=== PATIENT | male | born 1930 | race Caucasian/White ===

== ENCOUNTER 2017-03-23 18:57 | Inpatient (IN) ==
[2017-03-23] MEDS ORDERED: *HR* HYDROcodone/Acet 5/325 mg TABLET PO ONE (19:09)
[2017-03-23] MEDS ORDERED: 0.9 % Sodium Chloride 1,000 ML IVC ONE ×2 (19:29→23:00)
[2017-03-23] MEDS ORDERED: methylPREDNISolone 125 MG/2 ML VIAL IVP ONE (19:33)
[2017-03-23] MEDS ORDERED: Piperacillin/Tazobactam 4.5 GM in D5% in Water (Mini-Bag+) 100 ML IVPB ONE (19:33)
[2017-03-23] MEDS ORDERED: Vancomycin 1,000 MG in D5% in Water 250 ML IVPB ONE (19:33)
[2017-03-23] MEDS ORDERED: Ipratropium/Albuterol Neb 3 ML IH ONE (19:33)
[2017-03-23 19:51] LABS: Basophils % 0.2 %; Eosinophils # 0.1 K/mcL (0.0-0.6); Eosinophils % 0.5 %; Hematocrit 48.1 % (37.5-50.1); Hemoglobin 15.7 g/dL (12.9-16.9); Immature Granulocytes % 0.7 % (0-4); Lymphocytes # 1.1 K/mcL (0.6-4.6); Lymphocytes % 6.5 %; Mean Corpuscular HGB Conc 32.6 g/dL (31.6-35.5); Mean Corpuscular Hemoglobin 32.5 pg (28.0-33.3); Mean Corpuscular Volume 99.6 fL (83.0-100.0); Mean Platelet Volume 9.9 fL (9.4-12.4); Monocytes # 0.6 K/mcL (0.0-1.3); Monocytes % 3.5 %; Neutrophils # 15.6 K/mcL (1.6-8.9); Platelet Count 179 K/mcL (140-400); Red Blood Count 4.83 M/mcL (4.19-5.50); Red Cell Distribution Width 14.9 % (11.5-14.5); Segmented Neutrophils % 88.6 %
[2017-03-23 19:53] LABS: VBG HCO3 38.7 mEq/L (21-27); VBG PH 7.44 pH Units (7.32-7.42)
[2017-03-23 20:00] LABS: INR 0.9; Prothrombin Time 9.7 Seconds (9.4-12.1)
[2017-03-23 20:02] LABS: Activated Partial Thrombo Time 30.8 Seconds (26.0-36.0)
[2017-03-23 20:07] LABS: Calcium 9.4 mg/dL (8.6-10.8)
[2017-03-23] MEDS ORDERED: 0.9 % Sodium Chloride 1,000 ML IVC SCH ×2 (20:15→23:05)
[2017-03-23] MEDS ORDERED: Acetaminophen 325 MG TABLET PO PRN (21:57)
[2017-03-23] MEDS ORDERED: Naloxone 0.4 MG/ML INJ IVP PRN (21:57)
--- NOTE | 2017-03-23 22:45 | Internal Med History&Physical ---
Date of Encounter: 03/23/17 Time of Encounter: 22:00 Assessment and Plan (1) Compression fracture of body of thoracic vertebra Current visit: Yes Status: Acute Patient presents with sudden onset low back pain that started 8 hours prior to presentation. Exam reveals point tenderness in the lower midline back. CT scan of the abdomen reveals new onset compression fracture of the T11 vertebra. Patient be admitted to inpatient status due to new onset diagnosis of compression fracture and also sepsis due to pneumonia. Expected to be in the hospital for at least 2 midnights. Expected discharge disposition is back to the nursing facility. High risk due to risk of septic shock and further falls. Orthopedic consult will be requested in the morning. Physical therapy and outpatient therapy consults. Pain control. (2) Pneumonia Current visit: Yes Status: Acute Patient has crepitations bilateral lung bases. He does not have any symptoms of shortness of breath, cough, sputum production or fever or chills. He has a white count of 17,000 and elevated lactic acid level. CT scan evidence of bilateral lower lobe pneumonia. Suspected aspiration pneumonia due to the location of pneumonia and bilateral lower lobes posteriorly. Patient will be admitted to inpatient status. High risk due to risk of sepsis and septic shock. Patient received vancomycin and Zosyn in the emergency room. He will be placed on intravenous Unasyn. Speech therapy consult will be requested to evaluate for swallowing problems. Qualifiers: Pneumonia type: aspiration pneumonia Aspiration pneumonia type: due to gastric secretions Laterality: bilateral Lung location: lower lobe of lung Qualified Code(s): J69.0 - Pneumonitis due to inhalation of food and vomit (3) Diabetes mellitus Current visit: Yes Status: Chronic Continue home medications. Sliding scale insulin. His renal function appears to be at baseline. We will avoid nephrotoxic agents and hypotension. Intravenous fluids. 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 Continue oxygen supplementation. Qualifiers: Chronicity: chronic Respiratory failure complication: hypoxia Qualified Code(s): J96.11 - Chronic respiratory failure with hypoxia (5) Atrial fibrillation Current visit: Yes Status: Chronic Patient's heart rate is well controlled although he is in atrial fibrillation. Continue home medications for rate control. He does not appear to be on any anticoagulation. This may be related to high risk of falls. Qualifiers: Atrial fibrillation type: permanent Qualified Code(s): I48.2 - Chronic atrial fibrillation (6) COPD (chronic obstructive pulmonary disease) Current visit: Yes Status: Chronic Stable. Breathing treatments [id number]. Patient will be on Levaquin for his pneumonia. Will hold intravenous steroids due to his acute infection and risk of sepsis. Qualifiers: COPD type: unspecified COPD Qualified Code(s): J44.9 - Chronic obstructive pulmonary disease, unspecified (7) Alzheimer's dementia Current visit: No Status: Chronic Stable. Continue home medications. Qualifiers: Alzheimer's disease onset: unspecified onset Dementia behavioral disturbance: without behavioral disturbance Qualified Code(s): G30.9 - Alzheimer's disease, unspecified; F02.80 - Dementia in other diseases classified elsewhere without behavioral disturbance (8) Morbid obesity with BMI of 40.0-44.9, adult Current visit: No Status: Chronic Internal Medicine - H&P: HPI Chief complaint: Lower back pain Admitted From: Emergency Dept Plans for Post Hospital Care: Transfer [facility] History of present illness: Mr. Pineda is a 87 year old male who is a resident of a long-term facility who was sent to emergency department due to lower back pain. The patient is also them as dementia and is a poor historian. However, he is able to answer questions partially. Information was also obtained from review of records and discussion with ER physician. Patient complains of 9/10 pain in the lower back in the midline without any radiation that is throbbing and dull in nature. The pain is aggravated with movement and relieved with rest. He states that the pain started about 8 hours prior to presentation to the emergency department. He denies any history of trauma or injury. He denies any shortness of breath, chest pain, abdominal pain, nausea, vomiting , diarrhea or constipation. He denies fever or chills, cough, wheezing or sputum production. Denies any recent weight changes or the changes in his appetite. Past Med Surg Social Fam HX - Past Medical History Attestation: Yes The following information was validated with the patient. Source: old records reviewed Medical history: atrial fibrillation, CHF, COPD, dementia (Alzheimer's dementia) , diabetes, hypertension, renal disease (Chronic kidney disease) Psychiatric history: no psych history - Past Surgical History Surgical History: non-contributory - Social History Smoking Status: Never smoker Smokeless Tobacco Status: No Alcohol use: none Drug use: none Current living situation: ECF - Additional Family History Additional family history: Reviewed; not pertinent Internal Medicine - H&P: Meds Acetaminophen [Tylenol] 650 mg PO BID 03/23/17 [History] Acetaminophen [Tylenol] 650 mg PO Q6HR PRN 03/23/17 [History] Allopurinol [Zyloprim 100 MG] 200 mg PO DAILY 03/23/17 [History] Aspirin 81 mg PO DAILY 03/23/17 [History] Bisacodyl [Dulcolax] 10 mg RC DAILY PRN 03/23/17 [History] Cholecalciferol (D-3) [Vitamin D] 5,000 unit PO DAILY 03/23/17 [History] Finasteride [Proscar] 5 mg PO DAILY 03/23/17 [History] Fluticasone/Salmeterol [Advair 250-50 Diskus] 2 puff IH BID 03/23/17 [History] Insulin DETEMIR [Levemir] 10 unit SQ DAILY 03/23/17 [History] Ipratropium/Albuterol Neb [Duoneb] 3 ml IH Q6HR 03/23/17 [History] Lactulose [Enulose] 30 ml PO BID 03/23/17 [History] Lisinopril 2.5 mg PO DAILY 03/23/17 [History] Magnesium Hydroxide [Milk of Magnesia] 30 ml PO DAILY PRN 03/23/17 [History] Magnesium Oxide [Magnesium] 500 mg PO DAILY 03/23/17 [History] Metoprolol Succinate 100 mg PO DAILY 03/23/17 [History] Polyethylene Glycol 3350 [Purelax] 17 gm PO DAILY 03/23/17 [History] Potassium Chloride [K-Tab ER] 40 meq PO TID 03/23/17 [History] Sennosides [Senna] 8.6 mg PO BID 03/23/17 [History] Tamsulosin [Flomax] 0.8 mg PO DAILY 03/23/17 [History] Tiotropium [Spiriva] 1 cap IH DAILY 03/23/17 [History] Torsemide 100 mg PO DAILY 03/23/17 [History] metOLazone [Zaroxolyn] 2.5 mg PO MOWEFR 03/23/17 [History] Allergies No Known Allergies Allergy (Verified 05/22/16 16:12) All Systems PM: A 10-system review of systems was performed and is negative for pertinent findings except as documented above in the HPI. Review of systems: 10 systems have been reviewed and are negative except as mentioned in the history of present illness - Constitutional Vitals: Temp Pulse Resp BP Pulse Ox 98.7 F 72 20 98/47 94 03/23/17 18:59 03/23/17 21:16 03/23/17 21:59 03/23/17 21:59 03/23/17 21:16 Exam: Gen.: Lying in bed. Mild to moderate distress. Eyes: Pupils equal, round and reactive to light. Extraocular muscles intact. ENT: Dry mucous membranes. No oropharyngeal erythema or discharge. Chest: Bilateral basal conditions present. Not using axillary muscles of respiration. CVS: First and second heart sounds present. No murmurs, rubs or gallops. Abdomen: Soft, nontender, obese. Bowel sounds present. No hepatosplenomegaly. Skin: No decubitus ulcers appreciated. Tenderness to palpation over the lower midline back. CONCR[employer]E PAVER: No focal neuro deficits present. Psychiatric: Alert, awake and not oriented to time, place or person. Lymphatic system: No lymphadenopathy appreciated Internal Med - H&P Results - Labs CBC & Chem 7: 03/23/17 19:43 03/23/17 19:43 - EKG Data -: EKG Interpreted by Myself (Atrial fibrillation) EKG shows normal: ST-T waves (T-wave inversions in inferior and lateral leads) Rate: normal - EKG Data Prior EKG available for review: yes When compared to previous EKG: there is no significant change - Diagnostic Studies CT scan - chest Status: image reviewed by me (Right lower lobe infiltrate consistent with pneumonia; opacification also noted in left lower lobe concerning for pneumonia) CT scan - abdomen Additional comments: According to radiology read, new compression fracture of the T11 thoracic vertebra
[2017-03-24] MEDS: Ampicillin/Sulbactam 3,000 MG in 0.9 % Sodium Chloride Mini Bag 100 ML IVPB SCH ×4 (00:16→16:40)
[2017-03-24] MEDS: *HR* Heparin 5,000 UNIT/ML VIAL SQ SCH ×3 (00:16→16:43)
[2017-03-24] MEDS ORDERED: Dextrose Gel 15 GM PO PRN ×2 (01:08)
[2017-03-24] MEDS ORDERED: D5% in Water 1,000 ML IVC PRN (01:08)
[2017-03-24] MEDS ORDERED: *HR* Dextrose 50 % in Water (Syg) 50 ML SYRINGE IVP PRN (01:08)
--- NOTE | 2017-03-24 01:13 | Emergency Department Note ---
Disposition Clinical Impression: Septic shock Disposition: Admitted As Inpatient Condition: Critical General Adult HPI - General Chief complaint: ED Back Pain/Injury Stated complaint: Flank/Back Pain Time Seen by Provider: 03/23/17 18:59 Source: patient Limitations: no limitations Nursing Notes Reviewed: Yes Vital Signs Reviewed: Yes - History of Present Illness HPI Narrative: 87-year-old male who presents with concern for back pain, abdominal pain. He has dementia at baseline. He is sent in from a local senior living. He admits that his abdominal pain started shortly after dinner this evening. He is normally bed confined. He has urinary incontinence at baseline. He denies recent trauma, fall but does admit to recent cough. He has some wheezing on arrival. Tylenol was given prior to arrival. Pain Scale: 0 - Related Data Home Medications Medication Instructions Recorded Confirmed Acetaminophen [Tylenol] 650 mg PO BID 03/23/17 03/23/17 Acetaminophen [Tylenol] 650 mg PO Q6HR PRN 03/23/17 03/23/17 Allopurinol [Zyloprim 100 MG] 200 mg PO DAILY 03/23/17 03/23/17 Aspirin 81 mg PO DAILY 03/23/17 03/23/17 Bisacodyl [Dulcolax] 10 mg RC DAILY PRN 03/23/17 03/23/17 Cholecalciferol (D-3) [Vitamin D] 5,000 unit PO DAILY 03/23/17 03/23/17 Finasteride [Proscar] 5 mg PO DAILY 03/23/17 03/23/17 Fluticasone/Salmeterol [Advair 2 puff IH BID 03/23/17 03/23/17 250-50 Diskus] Insulin DETEMIR [Levemir] 10 unit SQ DAILY 03/23/17 03/23/17 Ipratropium/Albuterol Neb [Duoneb] 3 ml IH Q6HR 03/23/17 03/23/17 Lactulose [Enulose] 30 ml PO BID 03/23/17 03/23/17 Lisinopril 2.5 mg PO DAILY 03/23/17 03/23/17 Magnesium Hydroxide [Milk of 30 ml PO DAILY PRN 03/23/17 03/23/17 Magnesia] Magnesium Oxide [Magnesium] 500 mg PO DAILY 03/23/17 03/23/17 Metoprolol Succinate 100 mg PO DAILY 03/23/17 03/23/17 Polyethylene Glycol 3350 [Purelax] 17 gm PO DAILY 03/23/17 03/23/17 Potassium Chloride [K-Tab ER] 40 meq PO TID 03/23/17 03/23/17 Sennosides [Senna] 8.6 mg PO BID 03/23/17 03/23/17 Tamsulosin [Flomax] 0.8 mg PO DAILY 03/23/17 03/23/17 Tiotropium [Spiriva] 1 cap IH DAILY 03/23/17 03/23/17 Torsemide 100 mg PO DAILY 03/23/17 03/23/17 metOLazone [Zaroxolyn] 2.5 mg PO MOWEFR 03/23/17 03/23/17 Allergies Allergy/AdvReac Type Severity Reaction Status Date / Time No Known Allergies Allergy Verified 05/22/16 16:12 All systems ED: reviewed and negative except as stated. Past Medical History - Past Medical History Medical history: Reports: atrial fibrillation, CHF, COPD, dementia, diabetes, hypertension, renal disease Surgical history: Reports: non-contributory Psychiatric history: Reports: no psych history - Social History Smoking Status: Never smoker Smokeless Tobacco Status: No Alcohol use: Reports: none Drug use: Reports: none Physical Exam Confused at baseline Pupils equal, round, reactive to light Regular rate and rhythm Wheezing bilaterally, tachypnea Abdomen is soft and nontender Extremities are well perfused No focal neurological deficit Skin is pink, warm, dry - General Limitations: no limitations General appearance: alert, in no apparent distress Course Vital Signs Temperature 98.7 F 03/23/17 18:59 Pulse Rate 83 03/23/17 18:59 Respiratory Rate 03/23/17 18:59 Blood Pressure 119/93 03/23/17 18:59 O2 Sat by Pulse Oximetry 94 03/23/17 18:59 Temperature 98.2 F 03/23/17 23:30 Pulse Rate 67 03/23/17 23:30 Respiratory Rate 20 03/23/17 23:30 Blood Pressure 100/63 03/23/17 23:30 O2 Sat by Pulse Oximetry 94 03/23/17 23:30 Oxygen Delivery Oxygen Delivery Nasal Cannula Medical Decision Making - [facility] Narrative Medical decision making narrative: Male patient with wheezing on arrival and concern for pneumonia. His blood pressure was fairly soft on arrival. He was suspicious for having underlying infection. Given his residence in a nursing facility and would proceed with treatment for age. On further evaluation he was found to have sepsis. His lactate was persistently elevated despite IV fluids. I did not administer 30 mL per kilogram fluid bolus as this would require up to 5 L of fluid administration and I believe that this would result in significant volume overload for the patient. His blood pressure did improve with 2 L of normal saline. Broad-spectrum antibiotics were administered. Cultures were obtained. CT scan shows pneumonia as well as possible cystitis. We did attempt to place a Flowers catheter however this is unsuccessful due to body habitus. 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 He is a DNR CC. The patient will be admitted with a diagnosis of septic shock to the hospitalist team. I discussed the case with the hospitalist team. - Medical Records Medical records reviewed: Yes I reviewed the patient's medical records. - Lab Data Lab results reviewed: Yes I reviewed the patient's lab results. Result diagrams: 03/23/17 19:43 03/23/17 19:43 Lab Results 03/23/17 03/23/17 03/23/17 Range/Units 19:43 19:43 19:43 WBC 17.6 H (4.3-11.1) K/mcL RBC 4.83 (4.19-5.50) M/mcL Hgb 15.7 (12.9-16.9) g/dL Hct 48.1 (37.5-50.1) % MCV 99.6 (83.0-100.0) fL MCH 32.5 (28.0-33.3) pg MCHC 32.6 (31.6-35.5) g/dL RDW 14.9 H (11.5-14.5) % Plt Count 179 (140-400) K/mcL MPV 9.9 (9.4-12.4) fL Immature Gran % 0.7 (0-4) % Seg Neutrophils % 88.6 % Lymphocytes % 6.5 % Monocytes % 3.5 % Eosinophils % 0.5 % Basophils % 0.2 % Neutrophils # 15.6 H (1.6-8.9) K/mcL Lymphocytes # 1.1 (0.6-4.6) K/mcL Monocytes # 0.6 (0.0-1.3) K/mcL Eosinophils # 0.1 (0.0-0.6) K/mcL Basophils # 0.0 (0.0-0.2) K/mcL PT (9.4-12.1) Seconds INR APTT (26.0-36.0) Seconds VBG pH (7.32-7.42) pH Units VBG pCO2 (41-51) mmHg VBG pO2 (25-40) mmHg VBG HCO3 (21-27) mEq/L Sodium 140 (136-145) mEq/L Potassium 4.0 (3.5-4.5) mEq/L Chloride 96 L (98-109) mEq/L Carbon Dioxide 31 H (19-29) mEq/L BUN 37 H (8-26) mg/dL Creatinine 1.69 H (0.72-1.25) mg/dL Est GFR ( Amer) 47 L (> 60) Est GFR (Non-Af Amer) 39 L (> 60) BUN/Creatinine Ratio 22 (6-26) Glucose 133 H (70-99) mg/dL Calculated Osmolality 301 H (280-300) Lactic Acid (0.5-2.2) mmol/L Calcium 9.4 (8.6-10.8) mg/dL Troponin I 0.02 (0-0.03) ng/mL Lipase 18 (8-78) Units/L 03/23/17 03/23/17 03/23/17 Range/Units 19:43 19:43 19:43 WBC (4.3-11.1) K/mcL RBC (4.19-5.50) M/mcL Hgb (12.9-16.9) g/dL Hct (37.5-50.1) % MCV (83.0-100.0) fL MCH (28.0-33.3) pg MCHC (31.6-35.5) g/dL RDW (11.5-14.5) % Plt Count (140-400) K/mcL MPV (9.4-12.4) fL Immature Gran % (0-4) % Seg Neutrophils % % Lymphocytes % % Monocytes % % Eosinophils % % Basophils % % Neutrophils # (1.6-8.9) K/mcL Lymphocytes # (0.6-4.6) K/mcL Monocytes # (0.0-1.3) K/mcL Eosinophils # (0.0-0.6) K/mcL Basophils # (0.0-0.2) K/mcL PT 9.7 (9.4-12.1) Seconds INR 0.9 APTT 30.8 (26.0-36.0) Seconds VBG pH 7.44 H (7.32-7.42) pH Units VBG pCO2 57 H (41-51) mmHg VBG pO2 27 (25-40) mmHg VBG HCO3 38.7 H (21-27) mEq/L Sodium (136-145) mEq/L Potassium (3.5-4.5) mEq/L Chloride (98-109) mEq/L Carbon Dioxide (19-29) mEq/L BUN (8-26) mg/dL Creatinine (0.72-1.25) mg/dL Est GFR ( Amer) (> 60) Est GFR (Non-Af Amer) (> 60) BUN/Creatinine Ratio (6-26) Glucose (70-99) mg/dL Calculated Osmolality (280-300) Lactic Acid 2.4 H (0.5-2.2) mmol/L Calcium (8.6-10.8) mg/dL Troponin I (0-0.03) ng/mL Lipase (8-78) Units/L 03/23/ Range/Units 21:12 WBC (4.3-11.1) K/mcL RBC (4.19-5.50) M/mcL Hgb (12.9-16.9) g/dL Hct (37.5-50.1) % MCV (83.0-100.0) fL MCH (28.0-33.3) pg MCHC (31.6-35.5) g/dL RDW (11.5-14.5) % Plt Count (140-400) K/mcL MPV (9.4-12.4) fL Immature Gran % (0-4) % Seg Neutrophils % % Lymphocytes % % Monocytes % % Eosinophils % % Basophils % % Neutrophils # (1.6-8.9) K/mcL Lymphocytes # (0.6-4.6) K/mcL Monocytes # (0.0-1.3) K/mcL Eosinophils # (0.0-0.6) K/mcL Basophils # (0.0-0.2) K/mcL PT (9.4-12.1) Seconds INR APTT (26.0-36.0) Seconds VBG pH (7.32-7.42) pH Units VBG pCO2 (41-51) mmHg VBG pO2 (25-40) mmHg VBG HCO3 (21-27) mEq/L Sodium (136-145) mEq/L Potassium (3.5-4.5) mEq/L Chloride (98-109) mEq/L Carbon Dioxide (19-29) mEq/L BUN (8-26) mg/dL Creatinine (0.72-1.25) mg/dL Est GFR ( Amer) (> 60) Est GFR (Non-Af Amer) (> 60) BUN/Creatinine Ratio (6-26) Glucose (70-99) mg/dL Calculated Osmolality (280-300) Lactic Acid 2.5 H (0.5-2.2) mmol/L Calcium (8.6-10.8) mg/dL Troponin I (0-0.03) ng/mL Lipase (8-78) Units/L Critical Care Time Critical Care Time: Yes Total Critical Care Time: 31 Attestation: Greater than 31 minutes of critical care time was spent providing acute resuscitative care to this critical patient suffering from septic shock. Critical care time was excluding billable procedures.
[2017-03-24 02:00] LABS: Basophils % 0.2 %; Hematocrit 44.1 % (37.5-50.1); Hemoglobin 14.6 g/dL (12.9-16.9); Immature Granulocytes % 1.2 % (0-4); Lymphocytes # 1.2 K/mcL (0.6-4.6); Lymphocytes % 4.8 %; Mean Corpuscular HGB Conc 33.1 g/dL (31.6-35.5); Mean Corpuscular Volume 99.5 fL (83.0-100.0); Mean Platelet Volume 10.5 fL (9.4-12.4); Monocytes # 0.6 K/mcL (0.0-1.3); Monocytes % 2.5 %; Neutrophils # 21.9 K/mcL (1.6-8.9); Platelet Count 161 K/mcL (140-400); Red Blood Count 4.43 M/mcL (4.19-5.50); Red Cell Distribution Width 14.7 % (11.5-14.5); Segmented Neutrophils % 91.3 %
[2017-03-24 02:19] LABS: Bilirubin,Total 2.3 mg/dL (0.2-1.2); Calcium 8.6 mg/dL (8.6-10.8); Globulin 2.9 g/dL (2.4-3.5); Potassium 3.8 mEq/L (3.5-4.5); Total Protein 5.9 g/dL (6.0-8.3)
[2017-03-24 02:35] LABS: Basophils # 0.1 K/mcL (0.0-0.2)
[2017-03-24 03:03] LABS: Platelet Estimate Normal (Normal)
[2017-03-24] MEDS: Ipratropium/Albuterol Neb 3 ML IH SCH ×5 (03:41→22:32)
[2017-03-24] MEDS ORDERED: 0.9 % Sodium Chloride 500 ML IVC ONE (04:04)
[2017-03-24] MEDS ORDERED: 0.9 % Sodium Chloride 1,000 ML IVC ONE (05:20)
--- NOTE | 2017-03-24 07:56 | Urology - Consult Note ---
Date of Encounter: 03/24/17 Time of Encounter: 07:53 - Assessment and Plan (1) BPH (benign prostatic hypertrophy) with urinary retention Current Visit: Yes Status: Acute Assessment and plan: 87-year-old man with a history of BPH and urinary retention. There is a need for close urine output measurement. He has a pneumonia. I was able to place a 16 Chinese coude tipped catheter. He tolerated the procedure well. The primary team can remove the catheter when it is no longer needed. Urology CN:HPI Consult date: 03/24/17 Reason for consult Urology: Difficult Flowers Requesting physician: Aden Dickson History of present illness: 87-year-old man was admitted for pneumonia and sepsis. There is a need for close urine output monitoring. Attempts were made at placing a catheter which failed. I was counseled to place a Flowers catheter. Mr. Pineda says he usually voids well. He denies any difficulty with urination. He denies any dysuria. Past Med Surg Social Fam HX - Past Medical History Medical history: atrial fibrillation, CHF, COPD, dementia, diabetes, hypertension, renal disease Psychiatric history: no psych history - Past Surgical History Surgical History: non-contributory - Social History Smoking Status: Never smoker Smokeless Tobacco Status: No Alcohol use: none Drug use: none - Family History Mother History Unknown: Yes Father History Unknown: Yes Medications and Allergies Acetaminophen [Tylenol] 650 mg PO BID 03/23/17 [History] Acetaminophen [Tylenol] 650 mg PO Q6HR PRN 03/23/17 [History] Allopurinol [Zyloprim 100 MG] 200 mg PO DAILY 03/23/17 [History] Aspirin 81 mg PO DAILY 03/23/17 [History] Bisacodyl [Dulcolax] 10 mg RC DAILY PRN 03/23/17 [History] Cholecalciferol (D-3) [Vitamin D] 5,000 unit PO DAILY 03/23/17 [History] Finasteride [Proscar] 5 mg PO DAILY 03/23/17 [History] Fluticasone/Salmeterol [Advair 250-50 Diskus] 2 puff IH BID 03/23/17 [History] Insulin DETEMIR [Levemir] 10 unit SQ DAILY 03/23/17 [History] Ipratropium/Albuterol Neb [Duoneb] 3 ml IH Q6HR 03/23/17 [History] Lactulose [Enulose] 30 ml PO BID 03/23/17 [History] Lisinopril 2.5 mg PO DAILY 03/23/17 [History] Magnesium Hydroxide [Milk of Magnesia] 30 ml PO DAILY PRN 03/23/17 [History] Magnesium Oxide [Magnesium] 500 mg PO DAILY 03/23/17 [History] Metoprolol Succinate 100 mg PO DAILY 03/23/17 [History] Polyethylene Glycol 3350 [Purelax] 17 gm PO DAILY 03/23/17 [History] Potassium Chloride [K-Tab ER] 40 meq PO TID 03/23/17 [History] Sennosides [Senna] 8.6 mg PO BID 03/23/17 [History] Tamsulosin [Flomax] 0.8 mg PO DAILY 03/23/17 [History] Tiotropium [Spiriva] 1 cap IH DAILY 03/23/17 [History] Torsemide 100 mg PO DAILY 03/23/17 [History] metOLazone [Zaroxolyn] 2.5 mg PO MOWEFR 03/23/17 [History] Allergies No Known Allergies Allergy (Verified 05/22/16 16:12) Review of Systems - Constitutional no chills, no fever(s) - EENT Nose, mouth and throat: no dizziness - Cardiovascular no chest pain - Respiratory no dyspnea - Gastrointestinal no nausea, no vomiting - Genitourinary no flank pain, no hematuria - Musculoskeletal no back pain - Integumentary no erythema, no rash - Neurological no weakness - Psychiatric no suicidal ideation - Hematologic/Lymphatic no easy bleeding - Allergic/Immunologic no wheezing Exam Initial Vital Signs Temp Pulse Resp BP Pulse Ox 98.7 F 83 20 119/93 94 03/23/17 18:59 03/23/17 18:59 03/23/17 18:59 03/23/17 18:59 03/23/17 18:59 - General physical appearance Present: well developed, well nourished, no distress - Eyes Absent: icteric - ENT Present: normal nares - Neck Present: trachea midline - Respiratory Present: normal respiratory effort - Cardiovascular Cardiovascular exam IM: RRR - Abdomen Abdomen: Present: soft Urology Results - Labs 03/24/17 01:51 03/24/17 01:51 Abnormal lab results WBC 24.0 K/mcL (4.3-11.1) H 03/24/17 01:51 RDW 14.7 % (11.5-14.5) H 03/24/17 01:51 Neutrophils # 21.9 K/mcL (1.6-8.9) H 03/24/17 01:51 VBG pH 7.44 pH Units (7.32-7.42) H 03/23/17 19:43 VBG pCO2 57 mmHg (41-51) H 03/23/17 19:43 VBG HCO3 38.7 mEq/L (21-27) H 03/23/17 19:43 Chloride 97 mEq/L (98-109) L 03/24/17 01:51 BUN 38 mg/dL (8-26) H 03/24/17 01:51 Creatinine 1.81 mg/dL (0.72-1.25) H 03/24/17 01:51 Est GFR ( Amer) 43 (> 60) L 03/24/17 01:51 Est GFR (Non-Af Amer) 36 (> 60) L 03/24/17 01:51 Glucose 187 mg/dL (70-99) H 03/24/17 01:51 Lactic Acid 2.8 mmol/L (0.5-2.2) H 03/24/17 01:51 Total Bilirubin 2.3 mg/dL (0.2-1.2) H 03/24/17 01:51 Serum Total Protein 5.9 g/dL (6.0-8.3) L 03/24/17 01:51 Albumin 3.0 g/dL (3.5-5.0) L 03/24/17 01:51 Albumin/Globulin Ratio 1.0 (1.1-2.2) L 03/24/17 01:51 Diabetes panel 03/24/17 Range/Units 01:51 Sodium 137 (136-145) mEq/L Potassium 3.8 (3.5-4.5) mEq/L Chloride 97 L (98-109) mEq/L Carbon Dioxide 29 (19-29) mEq/L BUN 38 H (8-26) mg/dL Creatinine 1.81 H (0.72-1.25) mg/dL Glucose 187 H (70-99) mg/dL Calcium 8.6 (8.6-10.8) mg/dL AST 18 (5-34) Units/L ALT 7 (0-55) Units/L Alkaline Phosphatase 60 (38-126) Units/L Albumin 3.0 L (3.5-5.0) g/dL Calcium panel 03/24/17 Range/Units 01:51 Calcium 8.6 (8.6-10.8) mg/dL Albumin 3.0 L (3.5-5.0) g/dL Pituitary panel 03/24/17 Range/Units 01:51 Sodium 137 (136-145) mEq/L Potassium 3.8 (3.5-4.5) mEq/L Chloride 97 L (98-109) mEq/L Carbon Dioxide 29 (19-29) mEq/L BUN 38 H (8-26) mg/dL Creatinine 1.81 H (0.72-1.25) mg/dL Glucose 187 H (70-99) mg/dL Calcium 8.6 (8.6-10.8) mg/dL Adrenal panel 03/24/17 Range/Units 01:51 Sodium 137 (136-145) mEq/L Potassium 3.8 (3.5-4.5) mEq/L Chloride 97 L (98-109) mEq/L Carbon Dioxide 29 (19-29) mEq/L BUN 38 H (8-26) mg/dL Creatinine 1.81 H (0.72-1.25) mg/dL Glucose 187 H (70-99) mg/dL Calcium 8.6 (8.6-10.8) mg/dL Total Bilirubin 2.3 H (0.2-1.2) mg/dL AST 18 (5-34) Units/L ALT 7 (0-55) Units/L Alkaline Phosphatase 60 (38-126) Units/L Albumin 3.0 L (3.5-5.0) g/dL All other labs normal. Procedures:Urology - Catheter Insertion (Urinary) Bladder Scan/Ultrasound used before catheterization: No Preparation: Povidone-Iodine Type of catheter inserted: 2 way Catheter Chinese Size: 16 (Coude) Topical anesthesia used: Yes Results: successfully catheterized-immediate flow Urine Appearance: Clear Patient tolerated procedure: well Complications: none Consult Discharge Plan - Plan Referrals: Emiliano Linda [Primary Care Provider] -
[2017-03-24] MEDS: Lactulose Oral Soln 20 GM/30 ML UDC PO SCH ×2 (08:22→21:24)
[2017-03-24] MEDS: Aspirin 81 MG TAB.CHEW PO SCH (08:23)
[2017-03-24] MEDS: Cholecalciferol (D-3) 1,000 UNIT TABLET PO SCH (08:23)
[2017-03-24] MEDS: Finasteride 5 MG TABLET PO SCH (08:24)
[2017-03-24] MEDS: Sennosides 8.6 MG TABLET PO SCH ×2 (08:26→21:24)
[2017-03-24] MEDS ORDERED: Metoprolol XL (24 HR) Succ 50 MG TAB.ER.24H PO SCH (09:00)
[2017-03-24] MEDS ORDERED: levoFLOXacin 750 MG TABLET PO SCH (09:00)
[2017-03-24] MEDS ORDERED: NON-FORMULARY MEDICATION 1 EACH EACH (Insulin Detemir 10 UNIT) SQ SCH (09:00)
[2017-03-24] MEDS: Insulin LISPRO 300 UNITS/3 ML VIAL SQ SCH ×4 (10:26→21:18)
[2017-03-24] MEDS: Insulin DETEMIR 100 UNIT/ML X5UNITS SQ SCH (10:26)
[2017-03-24] MEDS: Budesonide/Formoterol 80/4.5 MDI IH SCH ×2 (10:46→22:32)
--- NOTE | 2017-03-24 12:13 | Palliative - Consult Note ---
Date of Encounter: 03/24/17 Time of Encounter: 11:30 - Assessment and Plan (1) Pain Current Visit: Yes Status: Acute Assessment and plan: Patient reports having pain to middle of his back. Patient with T11 compression fracture. Equal push and pull to all extremities and denies numbness or tingling. Rates pain a 5/10 and states that it is a constant ache. Will add PRN Vicodin as son states that he has had this on the past and tolerated fine. (2) Compression fracture of body of thoracic vertebra Current Visit: Yes Status: Acute Assessment and plan: Orthopedic consult pending (3) Goals of care, counseling/discussion Current Visit: Yes Status: Acute Assessment and plan: Patient is documented DNRCC-Comfort care his son Marquis is POA (#[phone]). I spoke with Marquis at bedside and he desires that his father receive care as needed for episodic events. The patient is not a hospice patient and Marquis understands the patients code status. He is also aware that the patient is has morbid obesity and that this places him at limited ability to have aggressive interventions. He desires that the patient be comfortable and treated as needed. Patient remains DNRCC-Comfort Care and desires antibiotics and fluids as needed. (4) Pneumonia Current Visit: Yes Status: Acute Qualifiers: Pneumonia type: aspiration pneumonia Aspiration pneumonia type: due to gastric secretions Laterality: bilateral Lung location: lower lobe of lung Qualified Code(s): J69.0 - Pneumonitis due to inhalation of food and vomit (5) COPD (chronic obstructive pulmonary disease) Current Visit: Yes Status: Chronic Qualifiers: COPD type: unspecified COPD Qualified Code(s): J44.9 - Chronic obstructive pulmonary disease, unspecified (6) Alzheimer's dementia Current Visit: No Status: Chronic Qualifiers: Alzheimer's disease onset: unspecified onset Dementia behavioral disturbance: without behavioral disturbance Qualified Code(s): G30.9 - Alzheimer's disease, unspecified; F02.80 - Dementia in other diseases classified elsewhere without behavioral disturbance Palliative-CN HPI - Data of Consult Patient: new to practice Consult date: 03/24/17 Requesting Physician: Leona Carmen MD Primary Care Provider: Emiliano Linda - Consult Narrative Palliative Care/Comfort Measures: Palliative care Reason for consult: Goals of Care History of present illness: Mr. Pineda is a 87 year old male admitted from [facility] with pneumonia and sepsis. The patient was also found to have a compression fracture of T11 vertebra with an Orthopedic consult pending. The patient has a history of dementia of Alzheimers type but is able to answer general healthcare questions. He states that he is bed bound and doesn't ambulate. He is obese. The patient son Marquis serves as POA. The patient is a documented DNRCC - Comfort Care and this palliative care consult os for GOC clarification of desired treatment. CC: Leona Carmen MD Past Med Surg Social Fam HX - Past Medical History Medical history: atrial fibrillation, CHF, COPD, dementia, diabetes, hypertension, renal disease Psychiatric history: no psych history - Past Surgical History Surgical History: non-contributory - Social History Smoking Status: Never smoker Smokeless Tobacco Status: No Alcohol use: none Drug use: none - Family History Mother History Unknown: Yes Father History Unknown: Yes Medications and Allergies Acetaminophen [Tylenol] 650 mg PO BID 03/23/17 [History] Acetaminophen [Tylenol] 650 mg PO Q6HR PRN 03/23/17 [History] Allopurinol [Zyloprim 100 MG] 200 mg PO DAILY 03/23/17 [History] Aspirin 81 mg PO DAILY 03/23/17 [History] Bisacodyl [Dulcolax] 10 mg RC DAILY PRN 03/23/17 [History] Cholecalciferol (D-3) [Vitamin D] 5,000 unit PO DAILY 03/23/17 [History] Finasteride [Proscar] 5 mg PO DAILY 03/23/17 [History] Fluticasone/Salmeterol [Advair 250-50 Diskus] 2 puff IH BID 03/23/17 [History] Insulin DETEMIR [Levemir] 10 unit SQ DAILY 03/23/17 [History] Ipratropium/Albuterol Neb [Duoneb] 3 ml IH Q6HR 03/23/17 [History] Lactulose [Enulose] 30 ml PO BID 03/23/17 [History] Lisinopril 2.5 mg PO DAILY 03/23/17 [History] Magnesium Hydroxide [Milk of Magnesia] 30 ml PO DAILY PRN 03/23/17 [History] Magnesium Oxide [Magnesium] 500 mg PO DAILY 03/23/17 [History] Metoprolol Succinate 100 mg PO DAILY 03/23/17 [History] Polyethylene Glycol 3350 [Purelax] 17 gm PO DAILY 03/23/17 [History] Potassium Chloride [K-Tab ER] 40 meq PO TID 03/23/17 [History] Sennosides [Senna] 8.6 mg PO BID 03/23/17 [History] Tamsulosin [Flomax] 0.8 mg PO DAILY 03/23/17 [History] Tiotropium [Spiriva] 1 cap IH DAILY 03/23/17 [History] Torsemide 100 mg PO DAILY 03/23/17 [History] metOLazone [Zaroxolyn] 2.5 mg PO MOWEFR 03/23/17 [History] Allergies No Known Allergies Allergy (Verified 05/22/16 16:12) All systems: reviewed and no additional remarkable complaints except as stated ( back pain) - Musculoskeletal Musculoskeletal ROS IM: muscle weakness - Neurological Neurological ROS: weakness Palliative Care-Exam - Constitutional Vitals: Temp Pulse Resp BP Pulse Ox 98 F 60 18 93/54 96 03/24/17 11:50 03/24/17 11:50 03/24/17 11:50 03/24/17 11:50 03/24/17 11:50 General appearance: Present: cooperative - Head Head Exam: Present: atraumatic, normal inspection, normocephalic - Eye Eye exam: Present: PERRL - ENT ENT exam: Present: mucous membranes dry - Respiratory Respiratory exam: Present: CTAB - Expanded Respiratory Exam Location: decreased breath sounds: Left, Right, Upper - Cardiovascular Cardiovascular exam: Present: RRR, +S1, +S2 - Expanded Cardiovascular Exam Peripheral pulses: 1+: Femoral (L) PM, Femoral (R) PM, Posterior Tibialis (L), Posterior Tibialis (R), 2+: Carotid (L) PM, Carotid (R) PM, Radial (L), Radial ( R), Dorsalis Pedis (L) PM, Dorsalis Pedis (R) PM - GI/Abdominal Exam GI/Abdominal exam: Present: normal bowel sounds - Catheter Type: Urethral (Flowers) (dark yellow urine) - Expanded Lower Extremities Exam Upper Leg exam: Present: full ROM Lower Leg exam: Present: full ROM - Psychiatric Psychiatric exam: Present: flat affect - Skin Skin exam: Present: pallor, warm Internal Medicine - CN: Reslt - Labs CBC & Chem 7: 03/24/17 01:51 03/24/17 01:51 Labs: Short CBC 03/24/17 Range/Units 01:51 WBC 24.0 H (4.3-11.1) K/mcL Hgb 14.6 (12.9-16.9) g/dL Hct 44.1 (37.5-50.1) % Plt Count 161 (140-400) K/mcL Neutrophils # 21.9 H (1.6-8.9) K/mcL BMP 03/24/17 01:51 Sodium 137 Potassium 3.8 Chloride 97 L Carbon Dioxide 29 BUN 38 H Creatinine 1.81 H Glucose 187 H Calcium 8.6 Liver Function 03/24/17 Range/Units 01:51 Total Bilirubin 2.3 H (0.2-1.2) mg/dL AST 18 (5-34) Units/L ALT 7 (0-55) Units/L Alkaline Phosphatase 60 (38-126) Units/L Albumin 3.0 L (3.5-5.0) g/dL - ABG Interpretation ABG results: PT/INR, D-dimer PT 11.0 Seconds (9.4-12.1) 03/24/17 01:51 Consult Discharge Plan - Plan Referrals: Emiliano Linda [Primary Care Provider] - Palliative Quality Palliative Quality: Screen for Code Status: Yes, Screen for Goals of Care: Yes, Screen for Pain: Yes, If Pain Regimen Started, Initiate Bowel Regimen: Yes, Screen for Nausea/Vomitting: Yes Code Status: 03/23/17 22:41 Resuscitation Status: Active [RES] Routine Comment: Resuscitation Status: DNR-Comfort Care
--- NOTE | 2017-03-24 13:38 | Internal Med Progress Note ---
Date of Encounter: 03/24/17 Time of Encounter: 10:00 - Assessment and plan (1) Pneumonia Current Visit: Yes Status: Acute Assessment and plan: Continue antibiotics with Unasyn. Continue oxygen support treatment. Continue symptomatic treatment. Closely monitor patient. Qualifiers: Pneumonia type: aspiration pneumonia Aspiration pneumonia type: due to gastric secretions Laterality: bilateral Lung location: lower lobe of lung Qualified Code(s): J69.0 - Pneumonitis due to inhalation of food and vomit (2) Diabetes mellitus Current Visit: Yes Status: Chronic Assessment and plan: Cover patient with basal and sliding scale insulin Qualifiers: Diabetes mellitus type: type 2 Diabetes mellitus complication status: with kidney complications Diabetes mellitus complication detail: with chronic kidney disease Diabetes mellitus fci insulin use: with regular senior care provider use Chronic kidney disease stage: stage 3 (moderate) Qualified Code(s): E11.22 - Type 2 diabetes mellitus with diabetic chronic kidney disease; N18.3 - Chronic kidney disease, stage 3 (moderate); 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 Continue beta roge, hold for today because of low BP, decrease dose of Toprol to 50 mg. Patient is on aspirin 81 mg daily , no anticoagulation at senior care possibly due to fall. Qualifiers: Atrial fibrillation type: permanent Qualified Code(s): I48.2 - Chronic atrial fibrillation (4) Compression fracture of body of thoracic vertebra Current Visit: Yes Status: Acute Assessment and plan: Continue pain medication. Orthopedic consult informed. Patient has pneumonia right now, DNR CC, and high age, he is not a good surgical candidate. (5) COPD (chronic obstructive pulmonary disease) Current Visit: Yes Status: Chronic Qualifiers: COPD type: unspecified COPD Qualified Code(s): J44.9 - Chronic obstructive pulmonary disease, unspecified (6) Alzheimer's dementia Current Visit: No Status: Chronic Assessment and plan: Continue home medications and supportive treatment Qualifiers: Alzheimer's disease onset: unspecified onset Dementia behavioral disturbance: without behavioral disturbance Qualified Code(s): G30.9 - Alzheimer's disease, unspecified; F02.80 - Dementia in other diseases classified elsewhere without behavioral disturbance (7) BPH (benign prostatic hypertrophy) with urinary retention Current Visit: Yes Status: Acute Assessment and plan: Had a Flowers catheter placed by urology in emergency room. Continue follow-up symptoms. (8) DVT prophylaxis Current Visit: Yes Status: Acute Assessment and plan: Hypertension subcutaneously (9) Abdominal aortic aneurysm Current Visit: Yes Status: Acute Assessment and plan: 4.[address], increased from 4.1cm from 2014. Need closely follow up as outpatient, recommend vascular surgery referral as outpatient. Qualifiers: Presence of rupture: without rupture Qualified Code(s): I71.4 - Abdominal aortic aneurysm, without rupture - Time Spent With Patient 25 - 35 minutes - Subjective Interval history: Patient is a 87-year-old male admitted for low back pain, patient was also found leukocytosis and chest x-ray shows pneumonia. Past medical history significant for A. fib, CHF, COPD, Alzheimer dementia, diabetes. Patient was seen and examined. Doing fine, back pain has been controlled by pain medication. Denies fever, cough, or shortness of breath. However, patient and in the 4 L nasal cannula oxygen to maintain oxygen saturation. BP is at a lower side but patient feels fine, possibly his baseline. We will continue antibiotics and supportive treatment for pneumonia. Consult orthopedics for compression fracture of T11, although patient is a poor surgery candidate. - Constitutional Vitals: Temp Pulse Resp BP Pulse Ox 98 F 60 18 93/54 96 03/24/17 11:50 03/24/17 11:50 03/24/17 11:50 03/24/17 11:50 03/24/17 11:50 General appearance: Present: A&O X 2, no acute distress, answers questions appropriately - Head Head exam: Present: atraumatic, normocephalic - Eye Eye exam: Present: PERRL, conjuntiva pink, sclera anicteric Pupils: Present: PERRL - Neck Neck exam general surgery: Present: supple, trachea midline. Absent: lymphadenopathy - Respiratory Respiratory exam: Present: CTAB. Absent: accessory muscle use, rales, rhonchi, wheezes - Cardiovascular Cardiovascular exam: Present: RRR, +S1, +S2. Absent: diastolic murmur, gallop, rubs, systolic murmur - GI/Abdominal GI/Abdominal exam: Present: normal bowel sounds, soft, no peritoneal signs. Absent: distended, tenderness - Extremities Exam Extremities exam: Present: warm, radial pulses palpable and symetrical. Absent : calf tenderness, cyanotic, pedal edema - Neurological Exam Neurological exam: Present: CN II-XII intact, oriented X3, no focal deficits. Absent: pronater drift, facial droop, speech deficit - Skin Skin exam: Present: dry, intact Internal Medicine: Result - Labs CBC & Chem 7: 03/24/17 01:51 03/24/17 01:51 Labs: Short CBC 03/24/17 Range/Units 01:51 WBC 24.0 H (4.3-11.1) K/mcL Hgb 14.6 (12.9-16.9) g/dL Hct 44.1 (37.5-50.1) % Plt Count 161 (140-400) K/mcL Neutrophils # 21.9 H (1.6-8.9) K/mcL BMP 03/24/17 01:51 Sodium 137 Potassium 3.8 Chloride 97 L Carbon Dioxide 29 BUN 38 H Creatinine 1.81 H Glucose 187 H Calcium 8.6 Liver Function 03/24/17 Range/Units 01:51 Total Bilirubin 2.3 H (0.2-1.2) mg/dL AST 18 (5-34) Units/L ALT 7 (0-55) Units/L Alkaline Phosphatase 60 (38-126) Units/L Albumin 3.0 L (3.5-5.0) g/dL - ABG Interpretation ABG results: PT/INR, D-dimer PT 11.0 Seconds (9.4-12.1) 03/24/17 01:51 Consult Discharge Plan - Plan Referrals: Emiliano Linda [Primary Care Provider] -
[2017-03-24] MEDS ORDERED: Vancomycin 2,000 MG in D5% in Water 250 ML IVPB SCH (14:00)
[2017-03-24] MEDS: 0.9 % Sodium Chloride 1,000 ML IVC SCH (16:40)
[2017-03-24] MEDS: Vancomycin 2,000 MG in D5% in Water 500 ML IVPB SCH (16:58)
[2017-03-25] MEDS: *HR* Heparin 5,000 UNIT/ML VIAL SQ SCH ×3 (00:48→16:30)
[2017-03-25] MEDS: Ampicillin/Sulbactam 3,000 MG in 0.9 % Sodium Chloride Mini Bag 100 ML IVPB SCH ×2 (00:48→13:50)
[2017-03-25] MEDS: Ipratropium/Albuterol Neb 3 ML IH SCH ×4 (04:17→23:45)
[2017-03-25 05:50] LABS: Basophils % 0.2 %; Hematocrit 36.4 % (37.5-50.1); Immature Granulocytes % 0.7 % (0-4); Lymphocytes # 2.1 K/mcL (0.6-4.6); Lymphocytes % 10.3 %; Mean Corpuscular HGB Conc 34.1 g/dL (31.6-35.5); Mean Corpuscular Hemoglobin 32.8 pg (28.0-33.3); Mean Corpuscular Volume 96.3 fL (83.0-100.0); Mean Platelet Volume 10.6 fL (9.4-12.4); Monocytes # 0.9 K/mcL (0.0-1.3); Monocytes % 4.7 %; Neutrophils # 16.7 K/mcL (1.6-8.9); Platelet Count 134 K/mcL (140-400); Red Blood Count 3.78 M/mcL (4.19-5.50); Red Cell Distribution Width 14.4 % (11.5-14.5); Segmented Neutrophils % 84.1 %
[2017-03-25 06:04] LABS: Calcium 8.4 mg/dL (8.6-10.8)
[2017-03-25 06:06] LABS: Hemoglobin 12.4 g/dL (12.9-16.9)
[2017-03-25] MEDS: Finasteride 5 MG TABLET PO SCH (08:14)
[2017-03-25] MEDS: Aspirin 81 MG TAB.CHEW PO SCH (08:14)
[2017-03-25] MEDS: Lactulose Oral Soln 20 GM/30 ML UDC PO SCH ×2 (08:14→21:38)
[2017-03-25] MEDS: Cholecalciferol (D-3) 1,000 UNIT TABLET PO SCH (08:14)
[2017-03-25] MEDS: Sennosides 8.6 MG TABLET PO SCH ×2 (08:14→21:38)
[2017-03-25] MEDS: Insulin LISPRO 300 UNITS/3 ML VIAL SQ SCH ×4 (08:15→21:31)
[2017-03-25] MEDS: Metoprolol XL (24 HR) Succ 50 MG TAB.ER.24H PO SCH (08:23)
[2017-03-25] MEDS: Insulin DETEMIR 100 UNIT/ML X5UNITS SQ SCH (08:29)
--- NOTE | 2017-03-25 09:16 | Palliative Progress Note ---
Date of Encounter: 03/25/17 Time of Encounter: 09:00 - Assessment and plan (1) Pain Current Visit: No Status: Acute Assessment and plan: Patient denies pain to back from compression fracture. Has utilized no percocet for pain. Continue to monitor. (2) Compression fracture of body of thoracic vertebra Current Visit: Yes Status: Acute Assessment and plan: T11 compression fracture. Orthopedic consult pending. (3) Goals of care, counseling/discussion Current Visit: No Status: Acute Assessment and plan: Patient is DNRCC - Comfort Care and Son Marquis desires treatment for episodic events. Patient from [facility] and plan to to return to [facility] upon DC. (4) Pneumonia Current Visit: Yes Status: Acute Assessment and plan: Antibiotics, Duonebs, supplemental O2. Position for comfort. Qualifiers: Pneumonia type: aspiration pneumonia Aspiration pneumonia type: due to gastric secretions Laterality: bilateral Lung location: lower lobe of lung Qualified Code(s): J69.0 - Pneumonitis due to inhalation of food and vomit (5) COPD (chronic obstructive pulmonary disease) Current Visit: Yes Status: Chronic Qualifiers: COPD type: unspecified COPD Qualified Code(s): J44.9 - Chronic obstructive pulmonary disease, unspecified (6) Alzheimer's dementia Current Visit: No Status: Chronic Qualifiers: Alzheimer's disease onset: unspecified onset Dementia behavioral disturbance: without behavioral disturbance Qualified Code(s): G30.9 - Alzheimer's disease, unspecified; F02.80 - Dementia in other diseases classified elsewhere without behavioral disturbance - Time Spent With Patient Total time spent is greater than 50% in coordination of care (as documented) at patient's floor/unit and/or counseling patient: 25 - 35 minutes - Subjective Interval history: Resting comfortable. No complains. Reports breathing better and denies back pain. - Constitutional Vitals: Abnormal lab results WBC 19.8 K/mcL (4.3-11.1) H 03/25/17 05:39 RBC 3.78 M/mcL (4.19-5.50) L 03/25/17 05:39 Hgb 12.4 g/dL (12.9-16.9) L D 03/25/17 05:39 Hct 36.4 % (37.5-50.1) L 03/25/17 05:39 Plt Count 134 K/mcL (140-400) L 03/25/17 05:39 Neutrophils # 16.7 K/mcL (1.6-8.9) H 03/25/17 05:39 VBG pH 7.44 pH Units (7.32-7.42) H 03/23/17 19:43 VBG pCO2 57 mmHg (41-51) H 03/23/17 19:43 VBG HCO3 38.7 mEq/L (21-27) H 03/23/17 19:43 Sodium 128 mEq/L (136-145) L D 03/25/17 05:39 Chloride 92 mEq/L (98-109) L 03/25/17 05:39 BUN 54 mg/dL (8-26) H D 03/25/17 05:39 Creatinine 1.99 mg/dL (0.72-1.25) H 03/25/17 05:39 Est GFR ( Amer) 39 (> 60) L 03/25/17 05:39 Est GFR (Non-Af Amer) 32 (> 60) L 03/25/17 05:39 BUN/Creatinine Ratio 27 (6-26) H 03/25/17 05:39 Glucose 195 mg/dL (70-99) H 03/25/17 05:39 POC Glucose 177 (58-89) H 03/24/17 20:22 Lactic Acid 2.4 mmol/L (0.5-2.2) H 03/25/17 05:39 Calcium 8.4 mg/dL (8.6-10.8) L 03/25/17 05:39 Total Bilirubin 2.3 mg/dL (0.2-1.2) H 03/24/17 01:51 Serum Total Protein 5.9 g/dL (6.0-8.3) L 03/24/17 01:51 Albumin 3.0 g/dL (3.5-5.0) L 03/24/17 01:51 Albumin/Globulin Ratio 1.0 (1.1-2.2) L 03/24/17 01:51 - Head Head exam: Present: atraumatic, normal inspection, normocephalic - Eye Eye exam: Present: PERRL Pupils: Present: PERRL - ENT ENT exam: Present: mucous membranes moist - Respiratory Respiratory exam: Present: decreased breath sounds, wheezes - Expanded Respiratory Exam Location: decreased breath sounds: Left, Right, Lower, wheezes: Left, Right ( scattered) - Cardiovascular Cardiovascular exam: Present: RRR, +S1, +S2 - GI/Abdominal GI/Abdominal exam: Present: normal bowel sounds, soft (incontinent with attends) - Extremities Exam Extremities exam: Present: tenderness - Back Exam Back exam: Present: vertebral tenderness (T11) - Neurological Exam Neurological exam: Present: alert, oriented X3 - Psychiatric Psychiatric exam: Present: normal affect - Skin Skin exam: Present: pallor, warm Palliative Quality Palliative Quality: Screen for Code Status: Yes, Screen for Goals of Care: Yes, Screen for Pain: Yes, If Pain Regimen Started, Initiate Bowel Regimen: Yes, Screen for Nausea/Vomitting: Yes Code Status: 03/23/17 22:41 Resuscitation Status: Active [RES] Routine Comment: Resuscitation Status: DNR-Comfort Care - Labs CBC & Chem 7: 03/25/17 05:39 03/25/17 05:39 Labs: Laboratory Results - last 24 hr 03/24/17 03/24/17 03/24/17 08:58 11:21 16:26 WBC RBC Hgb Hct MCV MCH MCHC RDW Plt Count MPV Immature Gran % Seg Neutrophils % Lymphocytes % Monocytes % Eosinophils % Basophils % Neutrophils # Lymphocytes # Monocytes # Eosinophils # Basophils # Sodium Potassium Chloride Carbon Dioxide BUN Creatinine Est GFR ( Amer) Est GFR (Non-Af Amer) BUN/Creatinine Ratio Glucose POC Glucose 203 H 186 H 198 H Calculated Osmolality Lactic Acid Calcium 03/24/17 03/25/17 03/25/17 20:22 05:39 05:39 WBC 19.8 H RBC 3.78 L Hgb 12.4 L D Hct 36.4 L MCV 96.3 MCH 32.8 MCHC 34.1 RDW 14.4 Plt Count 134 L MPV 10.6 Immature Gran % 0.7 Seg Neutrophils % 84.1 Lymphocytes % 10.3 Monocytes % 4.7 Eosinophils % 0.0 Basophils % 0.2 Neutrophils # 16.7 H Lymphocytes # 2.1 Monocytes # 0.9 Eosinophils # 0.0 Basophils # 0.0 Sodium 128 L D Potassium 4.0 Chloride 92 L Carbon Dioxide 26 BUN 54 H D Creatinine 1.99 H Est GFR ( Amer) 39 L Est GFR (Non-Af Amer) 32 L BUN/Creatinine Ratio 27 H Glucose 195 H POC Glucose 177 H Calculated Osmolality 286 Lactic Acid Calcium 8.4 L 03/25/17 05:39 WBC RBC Hgb Hct MCV MCH MCHC RDW Plt Count MPV Immature Gran % Seg Neutrophils % Lymphocytes % Monocytes % Eosinophils % Basophils % Neutrophils # Lymphocytes # Monocytes # Eosinophils # Basophils # Sodium Potassium Chloride Carbon Dioxide BUN Creatinine Est GFR ( Amer) Est GFR (Non-Af Amer) BUN/Creatinine Ratio Glucose POC Glucose Calculated Osmolality Lactic Acid 2.4 H Calcium - ABG Interpretation ABG results: PT/INR, D-dimer PT 11.0 Seconds (9.4-12.1) 03/24/17 01:51 Consult Discharge Plan - Plan Referrals: Emiliano Linda [Primary Care Provider] -
--- NOTE | 2017-03-25 09:33 | Electrocardiograph Report ---
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
[2017-03-25] MEDS: *HR* OxyCODONE/APAP 5/325 TABLET PO PRN ×2 (10:30→19:40)
[2017-03-25] MEDS: Budesonide/Formoterol 80/4.5 MDI IH SCH ×2 (10:59→23:46)
[2017-03-25] MEDS: Vancomycin 2,000 MG in D5% in Water 500 ML IVPB SCH (13:56)
--- NOTE | 2017-03-25 16:25 | Internal Med Progress Note ---
Date of Encounter: 03/25/17 Time of Encounter: 10:00 - Assessment and plan (1) Pneumonia Current Visit: Yes Status: Acute Assessment and plan: Continue antibiotics with vanco and Unasyn. Continue oxygen support treatment. Continue symptomatic treatment. Closely monitor patient. Patient is at high risk because of vancomycin use, needed close monitoring Qualifiers: Pneumonia type: aspiration pneumonia Aspiration pneumonia type: due to gastric secretions Laterality: bilateral Lung location: lower lobe of lung Qualified Code(s): J69.0 - Pneumonitis due to inhalation of food and vomit (2) Diabetes mellitus Current Visit: Yes Status: Chronic Assessment and plan: Cover patient with basal and sliding scale insulin Qualifiers: Diabetes mellitus type: type 2 Diabetes mellitus complication status: with kidney complications Diabetes mellitus complication detail: with chronic kidney disease Diabetes mellitus exterminator insulin use: with exterminator use Chronic kidney disease stage: stage 3 (moderate) Qualified Code(s): E11.22 - Type 2 diabetes mellitus with diabetic chronic kidney disease; N18.3 - Chronic kidney disease, stage 3 (moderate); Z79.4 - retirement (current) use of insulin (3) Atrial fibrillation Current Visit: Yes Status: Chronic Assessment and plan: Heart rate is well controlled. Continue beta roge, hold for today because of low BP, decrease dose of Toprol to 50 mg. Patient is on aspirin 81 mg daily , no anticoagulation at [facility] possibly due to fall. Qualifiers: Atrial fibrillation type: permanent Qualified Code(s): I48.2 - Chronic atrial fibrillation (4) Compression fracture of body of thoracic vertebra Current Visit: Yes Status: Acute Assessment and plan: Continue pain medication as needed. Orthopedic consult informed. Patient has pneumonia right now, DNR CC, and high age, he is not a good surgical candidate. (5) COPD (chronic obstructive pulmonary disease) Current Visit: Yes Status: Chronic Assessment and plan: Stable Qualifiers: COPD type: unspecified COPD Qualified Code(s): J44.9 - Chronic obstructive pulmonary disease, unspecified (6) Alzheimer's dementia Current Visit: No Status: Chronic Assessment and plan: Continue home medications and supportive treatment Qualifiers: Alzheimer's disease onset: unspecified onset Dementia behavioral disturbance: without behavioral disturbance Qualified Code(s): G30.9 - Alzheimer's disease, unspecified; F02.80 - Dementia in other diseases classified elsewhere without behavioral disturbance (7) BPH (benign prostatic hypertrophy) with urinary retention Current Visit: Yes Status: Acute Assessment and plan: Had a Flowers catheter placed by urology in emergency room. Continue follow-up symptoms. (8) DVT prophylaxis Current Visit: Yes Status: Acute Assessment and plan: Heparin subcutaneously (9) Abdominal aortic aneurysm Current Visit: Yes Status: Acute Assessment and plan: 4.[address], increased from 4.1cm in 2014. Need closely follow up as outpatient, recommend vascular surgery referral as outpatient. Qualifiers: Presence of rupture: without rupture Qualified Code(s): I71.4 - Abdominal aortic aneurysm, without rupture - Time Spent With Patient Greater than 35 minutes - Subjective Interval history: Patient is a 87-year-old male admitted for low back pain, patient was also found leukocytosis and chest x-ray shows pneumonia. Past medical history significant for A. fib, CHF, COPD, Alzheimer dementia, diabetes. Patient was seen and examined. Doing fine, More awake, alert today. Denies pain or SOB. Need 2 L NC O2. Vitals stable. Improved WBC and Lactate level. Cont Iv Abx vanco and unasyn. Cont low rate IVF. - Constitutional Vitals: Temp Pulse Resp BP Pulse Ox 97.6 F 67 18 91/55 95 03/25/17 12:23 03/25/17 12:23 03/25/17 15:30 03/25/17 12:23 03/25/17 15:30 General appearance: Present: A&O X 2, no acute distress, answers questions appropriately - Head Head exam: Present: atraumatic, normocephalic - Eye Eye exam: Present: PERRL, conjuntiva pink, sclera anicteric Pupils: Present: PERRL - Neck Neck exam general surgery: Present: supple, trachea midline. Absent: lymphadenopathy - Respiratory Respiratory exam: Present: CTAB. Absent: accessory muscle use, rales, rhonchi, wheezes - Cardiovascular Cardiovascular exam: Present: RRR, +S1, +S2. Absent: diastolic murmur, gallop, rubs, systolic murmur - GI/Abdominal GI/Abdominal exam: Present: normal bowel sounds, soft, no peritoneal signs. Absent: distended, tenderness - Extremities Exam Extremities exam: Present: warm, radial pulses palpable and symetrical. Absent : calf tenderness, cyanotic, pedal edema - Neurological Exam Neurological exam: Present: CN II-XII intact, oriented X3, no focal deficits. Absent: pronater drift, facial droop, speech deficit - Skin Skin exam: Present: dry, intact Internal Medicine: Result - Labs CBC & Chem 7: 03/25/17 05:39 03/25/17 05:39 Labs: Short CBC 03/25/17 Range/Units 05:39 WBC 19.8 H (4.3-11.1) K/mcL Hgb 12.4 L D (12.9-16.9) g/dL Hct 36.4 L (37.5-50.1) % Plt Count 134 L (140-400) K/mcL Neutrophils # 16.7 H (1.6-8.9) K/mcL BMP 03/25/17 05:39 Sodium 128 L D Potassium 4.0 Chloride 92 L Carbon Dioxide 26 BUN 54 H D Creatinine 1.99 H Glucose 195 H Calcium 8.4 L - ABG Interpretation ABG results: PT/INR, D-dimer PT 11.0 Seconds (9.4-12.1) 03/24/17 01:51 Consult Discharge Plan - Plan Referrals: Emiliano Linda [Primary Care Provider] -
[2017-03-25] MEDS: 0.9 % Sodium Chloride 1,000 ML IVC SCH (19:40)
[2017-03-25] MEDS: Ondansetron 4 MG/2 ML VIAL IVP PRN (19:57)
[2017-03-26] MEDS: *HR* Heparin 5,000 UNIT/ML VIAL SQ SCH ×3 (00:52→17:07)
[2017-03-26] MEDS: Ampicillin/Sulbactam 3,000 MG in 0.9 % Sodium Chloride Mini Bag 100 ML IVPB SCH ×2 (00:54→14:02)
[2017-03-26 03:42] LABS: Basophils % 0.1 %; Eosinophils % 0.1 %; Hematocrit 37.2 % (37.5-50.1); Hemoglobin 12.7 g/dL (12.9-16.9); Immature Granulocytes % 1.1 % (0-4); Lymphocytes # 1.9 K/mcL (0.6-4.6); Mean Corpuscular HGB Conc 34.1 g/dL (31.6-35.5); Mean Corpuscular Hemoglobin 33.2 pg (28.0-33.3); Mean Corpuscular Volume 97.1 fL (83.0-100.0); Mean Platelet Volume 10.8 fL (9.4-12.4); Monocytes # 0.9 K/mcL (0.0-1.3); Monocytes % 5.8 %; Neutrophils # 12.8 K/mcL (1.6-8.9); Platelet Count 137 K/mcL (140-400); Red Blood Count 3.83 M/mcL (4.19-5.50); Red Cell Distribution Width 14.3 % (11.5-14.5); Segmented Neutrophils % 80.9 %
[2017-03-26 03:54] LABS: Calcium 8.4 mg/dL (8.6-10.8); Potassium 3.6 mEq/L (3.5-4.5)
[2017-03-26] MEDS: Ipratropium/Albuterol Neb 3 ML IH SCH ×4 (03:55→21:55)
[2017-03-26] MEDS: Finasteride 5 MG TABLET PO SCH (08:39)
[2017-03-26] MEDS: Lactulose Oral Soln 20 GM/30 ML UDC PO SCH ×2 (08:39→21:26)
[2017-03-26] MEDS: Sennosides 8.6 MG TABLET PO SCH ×2 (08:39→21:26)
[2017-03-26] MEDS: Metoprolol XL (24 HR) Succ 50 MG TAB.ER.24H PO SCH (08:40)
[2017-03-26] MEDS: Insulin LISPRO 300 UNITS/3 ML VIAL SQ SCH ×4 (08:40→21:02)
[2017-03-26] MEDS: Aspirin 81 MG TAB.CHEW PO SCH (08:40)
[2017-03-26] MEDS: Cholecalciferol (D-3) 1,000 UNIT TABLET PO SCH (08:40)
[2017-03-26] MEDS: Insulin DETEMIR 100 UNIT/ML X5UNITS SQ SCH (08:41)
--- NOTE | 2017-03-26 09:32 | Palliative Progress Note ---
Date of Encounter: 03/26/17 Time of Encounter: 08:30 - Assessment and plan (1) Compression fracture of body of thoracic vertebra Current Visit: Yes Status: Acute Assessment and plan: Awaiting orthopedics consult for this, patient is pain-free at this time. (2) Pain Current Visit: No Status: Acute Assessment and plan: I will controlled at this time with the Percocet, he is only used 2 doses yesterday. As far today. The patient's bowels are also moving well at this time. (3) Goals of care, counseling/discussion Current Visit: No Status: Acute Assessment and plan: The patient is comfort care, however he is not in hospice. Laila is not interested in hospice at this time. Goal [facility] After treatment for the pneumonia and the compression fracture. Goals of care have been established, patient's CODE STATUS is also well- established. Her for the palliative care team will sign off please reconsult if we can help in any way. (4) Pneumonia Current Visit: Yes Status: Acute Assessment and plan: The patient is afebrile, white count is coming down blood cultures are negative thus far. Plan and antibiotics per hospitalist team. Qualifiers: Pneumonia type: aspiration pneumonia Aspiration pneumonia type: due to gastric secretions Laterality: bilateral Lung location: lower lobe of lung Qualified Code(s): J69.0 - Pneumonitis due to inhalation of food and vomit - Time Spent With Patient Total time spent is greater than 50% in coordination of care (as documented) at patient's floor/unit and/or counseling patient: - Subjective Interval history: The patient states that overall he is doing well. Having no problems with pain. Patient used a small amount of pain medication. Awaiting orthopedics consult for possible vertebral plasty. The patient has no complaints of at this time. - Constitutional Vitals: Abnormal lab results WBC 15.8 K/mcL (4.3-11.1) H 03/26/17 03:18 RBC 3.83 M/mcL (4.19-5.50) L 03/26/17 03:18 Hgb 12.7 g/dL (12.9-16.9) L 03/26/17 03:18 Hct 37.2 % (37.5-50.1) L 03/26/17 03:18 Plt Count 137 K/mcL (140-400) L 03/26/17 03:18 Neutrophils # 12.8 K/mcL (1.6-8.9) H 03/26/17 03:18 VBG pH 7.44 pH Units (7.32-7.42) H 03/23/17 19:43 VBG pCO2 57 mmHg (41-51) H 03/23/17 19:43 VBG HCO3 38.7 mEq/L (21-27) H 03/23/17 19:43 Sodium 131 mEq/L (136-145) L 03/26/17 03:18 Chloride 94 mEq/L (98-109) L 03/26/17 03:18 BUN 50 mg/dL (8-26) H 03/26/17 03:18 Creatinine 1.37 mg/dL (0.72-1.25) H 03/26/17 03:18 Est GFR (Non-Af Amer) 49 (> 60) L 03/26/17 03:18 BUN/Creatinine Ratio 36 (6-26) H 03/26/17 03:18 Glucose 142 mg/dL (70-99) H 03/26/17 03:18 POC Glucose 167 (58-89) H 03/26/17 08:25 Lactic Acid 2.4 mmol/L (0.5-2.2) H 03/25/17 05:39 Calcium 8.4 mg/dL (8.6-10.8) L 03/26/17 03:18 Total Bilirubin 2.3 mg/dL (0.2-1.2) H 03/24/17 01:51 Serum Total Protein 5.9 g/dL (6.0-8.3) L 03/24/17 01:51 Albumin 3.0 g/dL (3.5-5.0) L 03/24/17 01:51 Albumin/Globulin Ratio 1.0 (1.1-2.2) L 03/24/17 01:51 General appearance: Present: no acute distress - Head Head exam: Present: atraumatic, normal inspection - Eye Eye exam: Present: EOMI, normal appearance - ENT ENT exam: Present: mucous membranes moist - Respiratory Respiratory exam: Present: rhonchi (Rare seems to get better with a deep breath) - Cardiovascular Cardiovascular exam: Present: RRR (Sounds very regular at this time) - GI/Abdominal GI/Abdominal exam: Present: normal bowel sounds, soft. Absent: tenderness - Extremities Exam Extremities exam: Present: normal inspection. Absent: tenderness - Neurological Exam Neurological exam: Present: alert - Psychiatric Psychiatric exam: Present: normal affect, normal mood. Absent: agitated, anxious - Skin Skin exam: Present: dry, warm Palliative Quality Palliative Quality: Screen for Code Status: Yes, Screen for Goals of Care: Yes, Screen for Pain: Yes, If Pain Regimen Started, Initiate Bowel Regimen: Yes, Screen for Nausea/Vomitting: Yes Code Status: 03/23/17 22:41 Resuscitation Status: Active [RES] Routine Comment: Resuscitation Status: DNR-Comfort Care - Labs CBC & Chem 7: 03/26/17 03:18 03/26/17 03:18 Labs: Laboratory Results - last 24 hr 03/25/17 03/25/17 03/26/17 17:07 21:21 03:18 WBC 15.8 H RBC 3.83 L Hgb 12.7 L Hct 37.2 L MCV 97.1 MCH 33.2 MCHC 34.1 RDW 14.3 Plt Count 137 L MPV 10.8 Immature Gran % 1.1 Seg Neutrophils % 80.9 Lymphocytes % 12.0 Monocytes % 5.8 Eosinophils % 0.1 Basophils % 0.1 Neutrophils # 12.8 H Lymphocytes # 1.9 Monocytes # 0.9 Eosinophils # 0.0 Basophils # 0.0 Sodium Potassium Chloride Carbon Dioxide BUN Creatinine Est GFR ( Amer) Est GFR (Non-Af Amer) BUN/Creatinine Ratio Glucose POC Glucose 208 H 155 H Calculated Osmolality Calcium 03/26/17 03/26/17 03:18 08:25 WBC RBC Hgb Hct MCV MCH MCHC RDW Plt Count MPV Immature Gran % Seg Neutrophils % Lymphocytes % Monocytes % Eosinophils % Basophils % Neutrophils # Lymphocytes # Monocytes # Eosinophils # Basophils # Sodium 131 L Potassium 3.6 Chloride 94 L Carbon Dioxide 28 BUN 50 H Creatinine 1.37 H Est GFR ( Amer) 60 Est GFR (Non-Af Amer) 49 L BUN/Creatinine Ratio 36 H Glucose 142 H POC Glucose 167 H Calculated Osmolality 288 Calcium 8.4 L - ABG Interpretation ABG results: PT/INR, D-dimer PT 11.0 Seconds (9.4-12.1) 03/24/17 01:51 Consult Discharge Plan - Plan Referrals: Emiliano Linda [Primary Care Provider] -
[2017-03-26] MEDS ORDERED: Aminoglycoside Consult 1 EACH MC ONE (09:47)
[2017-03-26] MEDS: 0.9 % Sodium Chloride 1,000 ML IVC SCH (10:28)
[2017-03-26] MEDS: Budesonide/Formoterol 80/4.5 MDI IH SCH ×2 (10:53→21:55)
--- NOTE | 2017-03-26 11:52 | Urology Progress Note ---
Date of Encounter: 03/26/17 Time of Encounter: 11:51 - Assessment and Plan (1) BPH (benign prostatic hypertrophy) with urinary retention Current Visit: Yes Status: Acute Assessment and plan: Catheter was replaced yesterday after it likely dislodged. Continue catheter as needed per primary team. Hematuria is resolving. Progress Note Narrative: Catheter came out last night and was replaced. Urine is light pink today. He is tolerating the catheter adequately. Objective Initial Vital Signs Temp Pulse Resp BP Pulse Ox 98.7 F 83 20 119/93 94 03/23/17 18:59 03/23/17 18:59 03/23/17 18:59 03/23/17 18:59 03/23/17 18:59 - General physical appearance Present: well developed, well nourished, no distress - Respiratory Present: normal respiratory effort - Abdomen Present: soft - Genitourinary Urine Appearance: Present: Hematuria (Clear to light pink in tubing.) - Labs 03/26/17 03:18 03/26/17 03:18 Diabetes panel 03/26/17 Range/Units 03:18 Sodium 131 L (136-145) mEq/L Potassium 3.6 (3.5-4.5) mEq/L Chloride 94 L (98-109) mEq/L Carbon Dioxide 28 (19-29) mEq/L BUN 50 H (8-26) mg/dL Creatinine 1.37 H (0.72-1.25) mg/dL Glucose 142 H (70-99) mg/dL Calcium 8.4 L (8.6-10.8) mg/dL Calcium panel 03/26/17 Range/Units 03:18 Calcium 8.4 L (8.6-10.8) mg/dL Pituitary panel 03/26/17 Range/Units 03:18 Sodium 131 L (136-145) mEq/L Potassium 3.6 (3.5-4.5) mEq/L Chloride 94 L (98-109) mEq/L Carbon Dioxide 28 (19-29) mEq/L BUN 50 H (8-26) mg/dL Creatinine 1.37 H (0.72-1.25) mg/dL Glucose 142 H (70-99) mg/dL Calcium 8.4 L (8.6-10.8) mg/dL Adrenal panel 03/26/17 Range/Units 03:18 Sodium 131 L (136-145) mEq/L Potassium 3.6 (3.5-4.5) mEq/L Chloride 94 L (98-109) mEq/L Carbon Dioxide 28 (19-29) mEq/L BUN 50 H (8-26) mg/dL Creatinine 1.37 H (0.72-1.25) mg/dL Glucose 142 H (70-99) mg/dL Calcium 8.4 L (8.6-10.8) mg/dL Consult Discharge Plan - Plan Referrals: Emiliano Linda [Primary Care Provider] -
[2017-03-26] MEDS: Vancomycin 2,000 MG in D5% in Water 500 ML IVPB SCH (15:08)
--- NOTE | 2017-03-26 17:14 | Internal Med Progress Note ---
Date of Encounter: 03/26/17 Time of Encounter: 10:00 - Assessment and plan (1) Pneumonia Current Visit: Yes Status: Acute Assessment and plan: Continue antibiotics with vanco and Unasyn. Continue oxygen support treatment. Continue symptomatic treatment. Closely monitor patient. Patient is at high risk because of vancomycin use, needed close monitoring Qualifiers: Pneumonia type: aspiration pneumonia Aspiration pneumonia type: due to gastric secretions Laterality: bilateral Lung location: lower lobe of lung Qualified Code(s): J69.0 - Pneumonitis due to inhalation of food and vomit (2) Diabetes mellitus Current Visit: Yes Status: Chronic Assessment and plan: Cover patient with basal and sliding scale insulin Qualifiers: Diabetes mellitus type: type 2 Diabetes mellitus complication status: with kidney complications Diabetes mellitus complication detail: with chronic kidney disease Diabetes mellitus continuous churn buttermaker insulin use: with continuous churn buttermaker use Chronic kidney disease stage: stage 3 (moderate) Qualified Code(s): E11.22 - Type 2 diabetes mellitus with diabetic chronic kidney disease; N18.3 - Chronic kidney disease, stage 3 (moderate); Z79.4 - prison (current) use of insulin (3) Atrial fibrillation Current Visit: Yes Status: Chronic Assessment and plan: Heart rate is well controlled. Continue beta roge but decrease dose of Toprol XL to 50 mg daily. Patient is on aspirin 81 mg daily, no anticoagulation at [facility] possibly due to fall. Qualifiers: Atrial fibrillation type: permanent Qualified Code(s): I48.2 - Chronic atrial fibrillation (4) Compression fracture of body of thoracic vertebra Current Visit: Yes Status: Acute Assessment and plan: Continue pain medication as needed. Orthopedic consult informed. Patient has pneumonia right now, DNR CC, and high age, he is not a good surgical candidate. Pt has good pain control on lidocaine patch. (5) COPD (chronic obstructive pulmonary disease) Current Visit: Yes Status: Chronic Assessment and plan: Stable Qualifiers: COPD type: unspecified COPD Qualified Code(s): J44.9 - Chronic obstructive pulmonary disease, unspecified (6) Alzheimer's dementia Current Visit: No Status: Chronic Assessment and plan: Continue home medications and supportive treatment Qualifiers: Alzheimer's disease onset: unspecified onset Dementia behavioral disturbance: without behavioral disturbance Qualified Code(s): G30.9 - Alzheimer's disease, unspecified; F02.80 - Dementia in other diseases classified elsewhere without behavioral disturbance (7) BPH (benign prostatic hypertrophy) with urinary retention Current Visit: Yes Status: Acute Assessment and plan: Had a Flowers catheter placed by urology in emergency room. Continue follow-up symptoms. (8) DVT prophylaxis Current Visit: Yes Status: Acute Assessment and plan: Heparin subcutaneously (9) Abdominal aortic aneurysm Current Visit: Yes Status: Acute Assessment and plan: 4.[address], increased from 4.1cm in 2014. Need closely follow up as outpatient, recommend vascular surgery referral as outpatient. Qualifiers: Presence of rupture: without rupture Qualified Code(s): I71.4 - Abdominal aortic aneurysm, without rupture - Time Spent With Patient Greater than 35 minutes - Subjective Interval history: Patient is a 87-year-old male admitted for low back pain, patient was also found leukocytosis and chest x-ray shows pneumonia. Past medical history significant for A. fib, CHF, COPD, Alzheimer dementia, diabetes. Patient was seen and examined. Doing fine, Denies pain or SOB. Need 2 L NC O2, which is about his baseline. Vitals stable. Improved WBC level. Cont Iv Abx vanco and unasyn. Cont low rate IVF for MACKENZIE. - Constitutional Vitals: Temp Pulse Resp BP Pulse Ox 97.9 F 66 21 111/71 89 03/26/17 11:47 03/26/17 11:47 03/26/17 15:50 03/26/17 11:47 03/26/17 15:50 General appearance: Present: A&O X 2, no acute distress, answers questions appropriately - Head Head exam: Present: atraumatic, normocephalic - Eye Eye exam: Present: PERRL, conjuntiva pink, sclera anicteric Pupils: Present: PERRL - Neck Neck exam general surgery: Present: supple, trachea midline. Absent: lymphadenopathy - Respiratory Respiratory exam: Present: CTAB. Absent: accessory muscle use, rales, rhonchi, wheezes - Cardiovascular Cardiovascular exam: Present: RRR, +S1, +S2. Absent: diastolic murmur, gallop, rubs, systolic murmur - GI/Abdominal GI/Abdominal exam: Present: normal bowel sounds, soft, no peritoneal signs. Absent: distended, tenderness - Extremities Exam Extremities exam: Present: warm, radial pulses palpable and symetrical. Absent : calf tenderness, cyanotic, pedal edema - Neurological Exam Neurological exam: Present: CN II-XII intact, oriented X3, no focal deficits. Absent: pronater drift, facial droop, speech deficit - Skin Skin exam: Present: dry, intact Internal Medicine: Result - Labs CBC & Chem 7: 03/26/17 03:18 03/26/17 03:18 Labs: Short CBC 03/26/17 Range/Units 03:18 WBC 15.8 H (4.3-11.1) K/mcL Hgb 12.7 L (12.9-16.9) g/dL Hct 37.2 L (37.5-50.1) % Plt Count 137 L (140-400) K/mcL Neutrophils # 12.8 H (1.6-8.9) K/mcL BMP 03/26/17 03:18 Sodium 131 L Potassium 3.6 Chloride 94 L Carbon Dioxide 28 BUN 50 H Creatinine 1.37 H Glucose 142 H Calcium 8.4 L - ABG Interpretation ABG results: PT/INR, D-dimer PT 11.0 Seconds (9.4-12.1) 03/24/17 01:51 Consult Discharge Plan - Plan Referrals: Emiliano Linda [Primary Care Provider] - ([facility])
[2017-03-27] MEDS: *HR* Heparin 5,000 UNIT/ML VIAL SQ SCH ×3 (01:01→16:09)
[2017-03-27] MEDS: Ampicillin/Sulbactam 3,000 MG in 0.9 % Sodium Chloride Mini Bag 100 ML IVPB SCH (01:48)
[2017-03-27] MEDS: Ipratropium/Albuterol Neb 3 ML IH SCH ×4 (03:57→21:19)
[2017-03-27 05:28] LABS: Basophils % 0.4 %; Eosinophils # 0.1 K/mcL (0.0-0.6); Hematocrit 36.8 % (37.5-50.1); Hemoglobin 12.4 g/dL (12.9-16.9); Immature Granulocytes % 1.5 % (0-4); Lymphocytes # 1.8 K/mcL (0.6-4.6); Lymphocytes % 22.4 %; Mean Corpuscular HGB Conc 33.7 g/dL (31.6-35.5); Mean Corpuscular Hemoglobin 33.2 pg (28.0-33.3); Mean Corpuscular Volume 98.7 fL (83.0-100.0); Mean Platelet Volume 10.6 fL (9.4-12.4); Monocytes # 0.7 K/mcL (0.0-1.3); Monocytes % 9.1 %; Neutrophils # 5.3 K/mcL (1.6-8.9); Platelet Count 132 K/mcL (140-400); Red Blood Count 3.73 M/mcL (4.19-5.50); Red Cell Distribution Width 14.5 % (11.5-14.5); Segmented Neutrophils % 65.6 %
[2017-03-27 05:41] LABS: BUN/Creatinine Ratio 32 (6-26); Calcium 8.4 mg/dL (8.6-10.8); Carbon Dioxide 29 mEq/L (19-29); Chloride 100 mEq/L (98-109); Glucose 130 mg/dL (70-99); Osmolality,Calculated 292 (280-300); Potassium 3.5 mEq/L (3.5-4.5); Sodium 137 mEq/L (136-145); eGFR For African Americans > 60 (> 60); eGFR For Non-African Americans > 60 (> 60)
[2017-03-27 05:42] LABS: Blood Urea Nitrogen 29 mg/dL (8-26)
[2017-03-27] MEDS: Aspirin 81 MG TAB.CHEW PO SCH (08:58)
[2017-03-27] MEDS: Finasteride 5 MG TABLET PO SCH (08:58)
[2017-03-27] MEDS: Cholecalciferol (D-3) 1,000 UNIT TABLET PO SCH (08:58)
[2017-03-27] MEDS: Sennosides 8.6 MG TABLET PO SCH ×2 (08:59→20:34)
[2017-03-27] MEDS: Lactulose Oral Soln 20 GM/30 ML UDC PO SCH ×2 (08:59→20:35)
[2017-03-27] MEDS ORDERED: levoFLOXacin 750 MG TABLET PO SCH (09:00)
[2017-03-27] MEDS: Metoprolol XL (24 HR) Succ 50 MG TAB.ER.24H PO SCH (09:00)
[2017-03-27] MEDS: Insulin LISPRO 300 UNITS/3 ML VIAL SQ SCH ×4 (09:08→20:33)
[2017-03-27] MEDS: Insulin DETEMIR 100 UNIT/ML X5UNITS SQ SCH (09:12)
[2017-03-27] MEDS: Ondansetron 4 MG/2 ML VIAL IVP PRN ×2 (09:12→20:34)
[2017-03-27] MEDS: Budesonide/Formoterol 80/4.5 MDI IH SCH ×2 (10:17→21:19)
[2017-03-27] MEDS: 0.9 % Sodium Chloride 1,000 ML IVC SCH (10:34)
--- NOTE | 2017-03-27 10:58 | Orthopedic Consult Note ---
Date of Encounter: 03/28/17 Time of Encounter: 12:30 Assessment and Plan (1) Compression fracture of body of thoracic vertebra Current Visit: Yes Status: Acute Given patient's multiple comorbidities including acute illness of pneumonia, patient is not an appropriate surgical candidate. Discussed case with Dr. Castelan and Hospitalist. Patient okay for discharge with non-surgical T11 vertebral compression fracture to his facility with lidocaine patches and oral analgesics such as Acetaminophen as needed for pain. History of Present Illness Chief complaint: back pain HPI: Mr. Pineda is a 87 year old male admitted for multiple medical diagnoses and back pain. Orthopedic surgery consulted to address finding on CT chest of T11 endplate vertebral compression fracture. Patient resting comfortably in bed. No family available at bedside. States pain well controlled. Patient alert, oriented to self, neurovascularly intact with regard to extremities. Patient not able to roll to side for back examination. Given patient's multiple comorbidities including acute illness of pneumonia, patient is not an appropriate surgical candidate. Discussed case with Dr. Castelan and Hospitalist. Patient okay for discharge with non-surgical T11 vertebral compression fracture to his facility with lidocaine patches and oral analgesics such as Acetaminophen as needed for pain. Thank you for this consultation. Past Med Surg Social Fam HX - Past Medical History Medical history: atrial fibrillation, CHF, COPD, dementia, diabetes, hypertension, renal disease Psychiatric history: no psych history - Past Surgical History Surgical History: non-contributory - Social History Smoking Status: Never smoker Smokeless Tobacco Status: No Alcohol use: none Drug use: none - Family History Mother History Unknown: Yes Father History Unknown: Yes Medications and Allergies Acetaminophen [Tylenol] 650 mg PO BID 03/23/17 [History] Acetaminophen [Tylenol] 650 mg PO Q6HR PRN 03/23/17 [History] Allopurinol [Zyloprim 100 MG] 200 mg PO DAILY 03/23/17 [History] Aspirin 81 mg PO DAILY 03/23/17 [History] Bisacodyl [Dulcolax] 10 mg RC DAILY PRN 03/23/17 [History] Cholecalciferol (D-3) [Vitamin D] 5,000 unit PO DAILY 03/23/17 [History] Finasteride [Proscar] 5 mg PO DAILY 03/23/17 [History] Fluticasone/Salmeterol [Advair 250-50 Diskus] 2 puff IH BID 03/23/17 [History] Insulin DETEMIR [Levemir] 10 unit SQ DAILY 03/23/17 [History] Ipratropium/Albuterol Neb [Duoneb] 3 ml IH Q6HR 03/23/17 [History] Lactulose [Enulose] 30 ml PO BID 03/23/17 [History] Lisinopril 2.5 mg PO DAILY 03/23/17 [History] Magnesium Hydroxide [Milk of Magnesia] 30 ml PO DAILY PRN 03/23/17 [History] Magnesium Oxide [Magnesium] 500 mg PO DAILY 03/23/17 [History] Polyethylene Glycol 3350 [Purelax] 17 gm PO DAILY 03/23/17 [History] Sennosides [Senna] 8.6 mg PO BID 03/23/17 [History] Tamsulosin [Flomax] 0.8 mg PO DAILY 03/23/17 [History] Tiotropium [Spiriva] 1 cap IH DAILY 03/23/17 [History] metOLazone [Zaroxolyn] 2.5 mg PO MOWEFR 03/23/17 [History] Amoxicillin/Clavulanate [Augmentin] 875 mg PO BIDWM #6 tablet 03/28/17 [Rx] Lactobacillus [Culturelle] 2 each PO DAILY #30 cap.sprink 03/28/17 [Rx] Lidocaine Patch [Lidoderm 5% patch] 1 each TP DAILY #5 adh..patch 03/28/17 [Rx] Metoprolol Succinate 50 mg PO DAILY #0 03/28/17 [Rx] Potassium Chloride [K-Tab ER] 40 meq PO DAILY #0 03/28/17 [Rx] Torsemide 50 mg PO DAILY #0 03/28/17 [Rx] Allergies No Known Allergies Allergy (Verified 05/22/16 16:12) All Systems Reviewed: A 10-system review of systems was performed and is negative for pertinent findings except as documented above in the HPI. Physical Exam - Constitutional Vitals: Temp Pulse Resp BP Pulse Ox 98.1 F 61 17 112/69 96 03/27/17 07:10 03/27/17 07:10 03/27/17 10:19 03/27/17 07:10 03/27/17 10:19 Results - Labs Result Diagrams: 03/28/17 05:56 03/28/17 05:56 Labs: Abnormal lab results RBC 3.73 M/mcL (4.19-5.50) L 03/27/17 05:14 Hgb 12.4 g/dL (12.9-16.9) L 03/27/17 05:14 Hct 36.8 % (37.5-50.1) L 03/27/17 05:14 Plt Count 132 K/mcL (140-400) L 03/27/17 05:14 VBG pH 7.44 pH Units (7.32-7.42) H 03/23/17 19:43 VBG pCO2 57 mmHg (41-51) H 03/23/17 19:43 VBG HCO3 38.7 mEq/L (21-27) H 03/23/17 19:43 BUN 29 mg/dL (8-26) H D 03/27/17 05:14 BUN/Creatinine Ratio 32 (6-26) H 03/27/17 05:14 Glucose 130 mg/dL (70-99) H 03/27/17 05:14 POC Glucose 167 (58-89) H 03/26/17 08:25 Lactic Acid 2.4 mmol/L (0.5-2.2) H 03/25/17 05:39 Calcium 8.4 mg/dL (8.6-10.8) L 03/27/17 05:14 Total Bilirubin 2.3 mg/dL (0.2-1.2) H 03/24/17 01:51 Serum Total Protein 5.9 g/dL (6.0-8.3) L 03/24/17 01:51 Albumin 3.0 g/dL (3.5-5.0) L 03/24/17 01:51 Albumin/Globulin Ratio 1.0 (1.1-2.2) L 03/24/17 01:51 H & H 03/27/17 Range/Units 05:14 Hgb 12.4 L (12.9-16.9) g/dL Hct 36.8 L (37.5-50.1) % All other labs normal. Consult Discharge Plan - Plan Referrals: Emiliano Linda [Primary Care Provider] - ([facility] is [facility]) Prescriptions: Amoxicillin/Clavulanate [Augmentin] 875 mg PO BIDWM #6 tablet Lactobacillus [Culturelle] 2 each PO DAILY #30 cap.sprink Lidocaine Patch [Lidoderm 5% patch] 1 each TP DAILY #5 adh..patch
[2017-03-27] MEDS ORDERED: Ampicillin/Sulbactam 3,000 MG in 0.9 % Sodium Chloride Mini Bag 100 ML IVPB SCH (11:00)
[2017-03-27] MEDS: Lactobacillus 1 EACH CAP.SPRINK PO SCH (11:39)
--- NOTE | 2017-03-27 17:26 | Internal Med Progress Note ---
Date of Encounter: 03/27/17 Time of Encounter: 10:00 - Assessment and plan (1) Pneumonia Current Visit: Yes Status: Acute Assessment and plan: Continue antibiotics, blood culture negative, switched to by mouth Augmentin. Continue oxygen support treatment. Continue symptomatic treatment. Closely monitor patient. Qualifiers: Pneumonia type: aspiration pneumonia Aspiration pneumonia type: due to gastric secretions Laterality: bilateral Lung location: lower lobe of lung Qualified Code(s): J69.0 - Pneumonitis due to inhalation of food and vomit (2) Diabetes mellitus Current Visit: Yes Status: Chronic Assessment and plan: Cover patient with basal and sliding scale insulin Qualifiers: Diabetes mellitus type: type 2 Diabetes mellitus complication status: with kidney complications Diabetes mellitus complication detail: with chronic kidney disease Diabetes mellitus longterm insulin use: with exterminator termite use Chronic kidney disease stage: stage 3 (moderate) Qualified Code(s): E11.22 - Type 2 diabetes mellitus with diabetic chronic kidney disease; N18.3 - Chronic kidney disease, stage 3 (moderate); Z79.4 - intermodal customer service (current) use of insulin (3) Atrial fibrillation Current Visit: Yes Status: Chronic Assessment and plan: Heart rate is well controlled. Continue beta roge but decrease dose of Toprol XL to 50 mg daily. Patient is on aspirin 81 mg daily, no anticoagulation at [facility] possibly due to fall. Qualifiers: Atrial fibrillation type: permanent Qualified Code(s): I48.2 - Chronic atrial fibrillation (4) Compression fracture of body of thoracic vertebra Current Visit: Yes Status: Acute Assessment and plan: Continue pain medication as needed. Orthopedic consult saw pt. Recommended conservative treatment . Pt has good pain control on lidocaine patch. (5) COPD (chronic obstructive pulmonary disease) Current Visit: Yes Status: Chronic Assessment and plan: Stable Qualifiers: COPD type: unspecified COPD Qualified Code(s): J44.9 - Chronic obstructive pulmonary disease, unspecified (6) Alzheimer's dementia Current Visit: No Status: Chronic Assessment and plan: Continue home medications and supportive treatment Qualifiers: Alzheimer's disease onset: unspecified onset Dementia behavioral disturbance: without behavioral disturbance Qualified Code(s): G30.9 - Alzheimer's disease, unspecified; F02.80 - Dementia in other diseases classified elsewhere without behavioral disturbance (7) BPH (benign prostatic hypertrophy) with urinary retention Current Visit: Yes Status: Acute Assessment and plan: Had a Flowers catheter placed by urology in emergency room. Continue follow-up symptoms. (8) DVT prophylaxis Current Visit: Yes Status: Acute Assessment and plan: Heparin subcutaneously (9) Abdominal aortic aneurysm Current Visit: Yes Status: Acute Assessment and plan: 4.[address], increased from 4.1cm in 2014. Need closely follow up as outpatient, recommend vascular surgery referral as outpatient. Qualifiers: Presence of rupture: without rupture Qualified Code(s): I71.4 - Abdominal aortic aneurysm, without rupture - Time Spent With Patient 25 - 35 minutes - Subjective Interval history: Patient is a 87-year-old male admitted for low back pain, patient was also found leukocytosis and chest x-ray shows pneumonia. Past medical history significant for A. fib, CHF, COPD, Alzheimer dementia, diabetes. Patient was seen and examined. Doing fine, Denies pain or SOB. Need 2 L NC O2, which is about his baseline. Vitals stable. Nomalized WBC level. Switch Abx to po, pt is not tolerate Po levaquin (nausea), change to po Augmentin. Renal function has improved to normal level. - Constitutional Vitals: Temp Pulse Resp BP Pulse Ox 98.5 F 67 18 126/76 97 03/27/17 15:58 03/27/17 15:58 03/27/17 16:28 03/27/17 15:58 03/27/17 16:28 General appearance: Present: A&O X 2, no acute distress, answers questions appropriately - Head Head exam: Present: atraumatic, normocephalic - Eye Eye exam: Present: PERRL, conjuntiva pink, sclera anicteric Pupils: Present: PERRL - Neck Neck exam general surgery: Present: supple, trachea midline. Absent: lymphadenopathy - Respiratory Respiratory exam: Present: CTAB. Absent: accessory muscle use, rales, rhonchi, wheezes - Cardiovascular Cardiovascular exam: Present: RRR, +S1, +S2. Absent: diastolic murmur, gallop, rubs, systolic murmur - GI/Abdominal GI/Abdominal exam: Present: normal bowel sounds, soft, no peritoneal signs. Absent: distended, tenderness - Extremities Exam Extremities exam: Present: warm, radial pulses palpable and symetrical. Absent : calf tenderness, cyanotic, pedal edema - Neurological Exam Neurological exam: Present: CN II-XII intact, oriented X3, no focal deficits. Absent: pronater drift, facial droop, speech deficit - Skin Skin exam: Present: dry, intact Internal Medicine: Result - Labs CBC & Chem 7: 03/27/17 05:14 03/27/17 05:14 Labs: Short CBC 03/27/17 Range/Units 05:14 WBC 8.1 (4.3-11.1) K/mcL Hgb 12.4 L (12.9-16.9) g/dL Hct 36.8 L (37.5-50.1) % Plt Count 132 L (140-400) K/mcL Neutrophils # 5.3 (1.6-8.9) K/mcL BMP 03/27/17 05:14 Sodium 137 Potassium 3.5 Chloride 100 Carbon Dioxide 29 BUN 29 H D Creatinine 0.90 Glucose 130 H Calcium 8.4 L - ABG Interpretation ABG results: PT/INR, D-dimer PT 11.0 Seconds (9.4-12.1) 03/24/17 01:51 Consult Discharge Plan - Plan Referrals: Emiliano Linda [Primary Care Provider] - (patient is from [facility])
[2017-03-28] MEDS: *HR* Heparin 5,000 UNIT/ML VIAL SQ SCH ×2 (00:34→09:52)
[2017-03-28] MEDS: Ipratropium/Albuterol Neb 3 ML IH SCH ×3 (04:23→15:59)
[2017-03-28] MEDS: 0.9 % Sodium Chloride 1,000 ML IVC SCH (05:59)
[2017-03-28] MEDS: Ondansetron 4 MG/2 ML VIAL IVP PRN (05:59)
[2017-03-28 06:12] LABS: Basophils % 0.5 %; Eosinophils # 0.2 K/mcL (0.0-0.6); Hematocrit 37.4 % (37.5-50.1); Hemoglobin 12.5 g/dL (12.9-16.9); Immature Granulocytes % 2.3 % (0-4); Lymphocytes # 1.9 K/mcL (0.6-4.6); Lymphocytes % 24.1 %; Mean Corpuscular HGB Conc 33.4 g/dL (31.6-35.5); Mean Corpuscular Hemoglobin 33.5 pg (28.0-33.3); Mean Corpuscular Volume 100.3 fL (83.0-100.0); Mean Platelet Volume 10.4 fL (9.4-12.4); Monocytes # 0.9 K/mcL (0.0-1.3); Neutrophils # 4.7 K/mcL (1.6-8.9); Platelet Count 119 K/mcL (140-400); Red Blood Count 3.73 M/mcL (4.19-5.50); Red Cell Distribution Width 14.9 % (11.5-14.5); Segmented Neutrophils % 59.1 %
[2017-03-28 06:18] LABS: BUN/Creatinine Ratio 22 (6-26); Calcium 8.2 mg/dL (8.6-10.8); Carbon Dioxide 28 mEq/L (19-29); Chloride 102 mEq/L (98-109); Glucose 123 mg/dL (70-99); Osmolality,Calculated 285 (280-300); Potassium 3.9 mEq/L (3.5-4.5); Sodium 136 mEq/L (136-145); eGFR For African Americans > 60 (> 60); eGFR For Non-African Americans > 60 (> 60)
[2017-03-28 06:19] LABS: Blood Urea Nitrogen 17 mg/dL (8-26)
[2017-03-28] MEDS: Insulin LISPRO 300 UNITS/3 ML VIAL SQ SCH ×2 (08:32→11:38)
[2017-03-28] MEDS: Metoprolol XL (24 HR) Succ 50 MG TAB.ER.24H PO SCH (09:51)
[2017-03-28] MEDS: Finasteride 5 MG TABLET PO SCH (09:51)
[2017-03-28] MEDS: Cholecalciferol (D-3) 1,000 UNIT TABLET PO SCH (09:52)
[2017-03-28] MEDS: Lactobacillus 1 EACH CAP.SPRINK PO SCH (09:52)
[2017-03-28] MEDS: Aspirin 81 MG TAB.CHEW PO SCH (09:52)
[2017-03-28] MEDS: Sennosides 8.6 MG TABLET PO SCH (09:52)
[2017-03-28] MEDS: Lactulose Oral Soln 20 GM/30 ML UDC PO SCH (09:53)
[2017-03-28] MEDS: Insulin DETEMIR 100 UNIT/ML X5UNITS SQ SCH (10:12)
[2017-03-28] MEDS: Budesonide/Formoterol 80/4.5 MDI IH SCH (10:39)
--- NOTE | 2017-03-28 11:59 | Discharge Summary ---
Date of Encounter: 03/28/17 Time of Encounter: 10:00 - Discharge Diagnosis (1) Pneumonia Priority: Primary Status: Acute Qualifiers: Pneumonia type: aspiration pneumonia Aspiration pneumonia type: due to gastric secretions Laterality: bilateral Lung location: lower lobe of lung Qualified Code(s): J69.0 - Pneumonitis due to inhalation of food and vomit (2) Diabetes mellitus Priority: Secondary Status: Chronic Qualifiers: Diabetes mellitus type: type 2 Diabetes mellitus complication status: with kidney complications Diabetes mellitus complication detail: with chronic kidney disease Diabetes mellitus assisted insulin use: with watermaster use Chronic kidney disease stage: stage 3 (moderate) Qualified Code(s): E11.22 - Type 2 diabetes mellitus with diabetic chronic kidney disease; N18.3 - Chronic kidney disease, stage 3 (moderate); Z79.4 - assistant terminal manager (current) use of insulin (3) Atrial fibrillation Priority: Secondary Status: Chronic Qualifiers: Atrial fibrillation type: permanent Qualified Code(s): I48.2 - Chronic atrial fibrillation (4) Compression fracture of body of thoracic vertebra Priority: Primary Status: Acute (5) COPD (chronic obstructive pulmonary disease) Priority: Secondary Status: Chronic Qualifiers: COPD type: unspecified COPD Qualified Code(s): J44.9 - Chronic obstructive pulmonary disease, unspecified (6) Alzheimer's dementia Priority: Secondary Status: Chronic Qualifiers: Alzheimer's disease onset: unspecified onset Dementia behavioral disturbance: without behavioral disturbance Qualified Code(s): G30.9 - Alzheimer's disease, unspecified; F02.80 - Dementia in other diseases classified elsewhere without behavioral disturbance (7) BPH (benign prostatic hypertrophy) with urinary retention Priority: Secondary Status: Acute (8) DVT prophylaxis Priority: Secondary Status: Acute (9) Abdominal aortic aneurysm Priority: Secondary Status: Acute Qualifiers: Presence of rupture: without rupture Qualified Code(s): I71.4 - Abdominal aortic aneurysm, without rupture (10) MACKENZIE (acute kidney injury) Priority: Primary Status: Acute - Discharge Medications Prescriptions: Amoxicillin/Clavulanate [Augmentin] 875 mg PO BIDWM #6 tablet Lactobacillus [Culturelle] 2 each PO DAILY #30 cap.sprink Lidocaine Patch [Lidoderm 5% patch] 1 each TP DAILY #5 adh..patch Home Medications: Acetaminophen [Tylenol] 650 mg PO BID 03/23/17 [History] Acetaminophen [Tylenol] 650 mg PO Q6HR PRN 03/23/17 [History] Allopurinol [Zyloprim 100 MG] 200 mg PO DAILY 03/23/17 [History] Aspirin 81 mg PO DAILY 03/23/17 [History] Bisacodyl [Dulcolax] 10 mg RC DAILY PRN 03/23/17 [History] Cholecalciferol (D-3) [Vitamin D] 5,000 unit PO DAILY 03/23/17 [History] Finasteride [Proscar] 5 mg PO DAILY 03/23/17 [History] Fluticasone/Salmeterol [Advair 250-50 Diskus] 2 puff IH BID 03/23/17 [History] Insulin DETEMIR [Levemir] 10 unit SQ DAILY 03/23/17 [History] Ipratropium/Albuterol Neb [Duoneb] 3 ml IH Q6HR 03/23/17 [History] Lactulose [Enulose] 30 ml PO BID 03/23/17 [History] Lisinopril 2.5 mg PO DAILY 03/23/17 [History] Magnesium Hydroxide [Milk of Magnesia] 30 ml PO DAILY PRN 03/23/17 [History] Magnesium Oxide [Magnesium] 500 mg PO DAILY 03/23/17 [History] Polyethylene Glycol 3350 [Purelax] 17 gm PO DAILY 03/23/17 [History] Sennosides [Senna] 8.6 mg PO BID 03/23/17 [History] Tamsulosin [Flomax] 0.8 mg PO DAILY 03/23/17 [History] Tiotropium [Spiriva] 1 cap IH DAILY 03/23/17 [History] metOLazone [Zaroxolyn] 2.5 mg PO MOWEFR 03/23/17 [History] Amoxicillin/Clavulanate [Augmentin] 875 mg PO BIDWM #6 tablet 03/28/17 [Rx] Lactobacillus [Culturelle] 2 each PO DAILY #30 cap.sprink 03/28/17 [Rx] Lidocaine Patch [Lidoderm 5% patch] 1 each TP DAILY #5 adh..patch 03/28/17 [Rx] Metoprolol Succinate 50 mg PO DAILY #0 03/28/17 [Rx] Potassium Chloride [K-Tab ER] 40 meq PO DAILY #0 03/28/17 [Rx] Torsemide 50 mg PO DAILY #0 03/28/17 [Rx] Allergies/Adverse Reactions: Allergies No Known Allergies Allergy (Verified 05/22/16 16:12) - Notes to Outpatient Provider 1. Please continue Augmentin 875 mg twice a day for 3 more days to finish a seven-day course. 2. Patient's home medication has been modified because of lower side BP: Metoprolol XL has been decreased dose from 100 mg daily to 50 mg daily. 3. Patient's lisinopril, Torsemide, metolazone, and potassium pills were on hold during hospitalization because of his poor renal function. Will resume upon discharge, however dose has been changed: Patient has good urine output even without diuretics, will decrease torsemide dose from 100 mg daily to 50 mg daily. Potassium dose will be decreased accordingly from 40 mEq tid to 40mEq daily. Please follow-up BP change, potassium level, and renal function in one week. Date of admission: 03/23/17 21:57 Primary care physician: Emiliano Linda Consults: 03/23/17 22:50 Consult to Speech Therapy [CONS] Routine Comment: Evaluate, develop and implement POC Reason for Consult: Suspected aspiration pneumonia Call Completed: No 03/24/17 07:43 Consult to Palliative Care [CONS] Routine Comment: Consulting Provider: Palliative Care Rosemarie Reason for Consult: Pt is DNRCC, has SOB and hypotension due to pneumonia, started Abx already, need further determine goal of care Call Completed: No 03/24/17 07:45 Consult to Urology [CONS] Routine Consulting Provider: Urology Rosemarie Reason for Consult: unsuccessful placement of borden catheter Call Completed: No 03/24/17 12:20 Consult to Orthopedic Surgery [CONS] Routine Consulting Provider: Truong Castelan Jr Reason for Consult: T11 compression fracturew Call Completed: Yes 03/27/17 09:16 Consult to Chart Snatcher [CONS] Routine Reason for SW Consult: Patient is from [facility] Discharging clinician: Leona Carmen Anticipated date of discharge: 03/28/17 - Patient Status Disposition: Transfer SNF Condition: Fair Overall status at discharge: patient is back to baseline - Discharge Instructions Follow Up With: Emiliano Linda [Primary Care Provider] - (patient is from [facility]) Forms: ED Satisfaction Letter - Diet and Activity Activity: as per physical therapy Diet: diabetic diet, low salt diet Interval History: Mr. Pineda is a 87 year old male who is a resident of a half-way facility who was sent to emergency department due to lower back pain. The patient is also them as dementia and is a poor historian. However, he is able to answer questions partially. Information was also obtained from review of records and discussion with ER physician. Patient complains of 9/10 pain in the lower back in the midline without any radiation that is throbbing and dull in nature. The pain is aggravated with movement and relieved with rest. He states that the pain started about 8 hours prior to presentation to the emergency department. He denies any history of trauma or injury. Hospital course: Mr. Pineda is a 87 year old male admitted for T 11 compression fracture and pneumonia. Patient has elevated WBC and increased oxygen requirement. He was placed on iv antibiotic. Patient is also found to have acute kidney injury. IV fluid started. Orthopedic consult was called to see patient for T 11 compression fracture, he is not a good surgical candidate, recommend pain management and conservative treatment. After treatment, patient's condition has improved, WBC Down to normal, patient's oxygen saturation 94-96% on 2 L nasal cannula oxygen, which is his baseline. His kidney function has improved as well. Patient will discharge her back to ECF with by mouth antibiotic to finish a 7 day antibiotic course. Pt was seen and examined today. He is awake alert, denies pain or shortness of breath. Vitals are stable. [facility] will [facility] for further care. - Time Spent with Patient Total time spent providing and/or coordinating discharge services: 40 minutes Greater than 30 minutes - Constitutional Vitals: Temp Pulse Resp BP Pulse Ox 98.1 F 86 20 115/69 94 03/28/17 11:09 03/28/17 11:09 03/28/17 11:09 03/28/17 11:09 03/28/17 11:09 General appearance: Present: A&O X 2, no acute distress, answers questions appropriately - Head Head exam: Present: atraumatic, normocephalic - Eye Eye exam: Present: PERRL, conjuntiva pink, sclera anicteric Pupils: Present: PERRL - Neck Neck exam general surgery: Present: supple, trachea midline. Absent: lymphadenopathy - Respiratory Respiratory exam: Present: CTAB. Absent: accessory muscle use, rales, rhonchi, wheezes - Cardiovascular Cardiovascular exam: Present: RRR, +S1, +S2. Absent: diastolic murmur, gallop, rubs, systolic murmur - GI/Abdominal GI/Abdominal exam: Present: normal bowel sounds, soft, no peritoneal signs. Absent: distended, tenderness - Extremities Exam Extremities exam: Present: warm, radial pulses palpable and symetrical. Absent : calf tenderness, cyanotic, pedal edema - Neurological Exam Neurological exam: Present: CN II-XII intact, oriented X3, no focal deficits. Absent: pronater drift, facial droop, speech deficit - Skin Skin exam: Present: dry, intact
--- NOTE | 2017-03-28 12:25 | Physician Discharge Referral ---
[facility] Referral Info Transfer To: ECF Provider in Charge after Transfer: Other - Diagnosis (1) Pneumonia Status: Acute (2) Diabetes mellitus Status: Chronic (3) Atrial fibrillation Status: Chronic (4) Compression fracture of body of thoracic vertebra Status: Acute (5) COPD (chronic obstructive pulmonary disease) Status: Chronic (6) Alzheimer's dementia Status: Chronic (7) BPH (benign prostatic hypertrophy) with urinary retention Status: Acute (8) DVT prophylaxis Status: Acute (9) Abdominal aortic aneurysm Status: Acute (10) MACKENZIE (acute kidney injury) Status: Acute - Transfer Medications Prescriptions: Amoxicillin/Clavulanate [Augmentin] 875 mg PO BIDWM #6 tablet Lactobacillus [Culturelle] 2 each PO DAILY #30 cap.sprink Lidocaine Patch [Lidoderm 5% patch] 1 each TP DAILY #5 adh..patch Home Medications: Acetaminophen [Tylenol] 650 mg PO BID 03/23/17 [History] Acetaminophen [Tylenol] 650 mg PO Q6HR PRN 03/23/17 [History] Allopurinol [Zyloprim 100 MG] 200 mg PO DAILY 03/23/17 [History] Aspirin 81 mg PO DAILY 03/23/17 [History] Bisacodyl [Dulcolax] 10 mg RC DAILY PRN 03/23/17 [History] Cholecalciferol (D-3) [Vitamin D] 5,000 unit PO DAILY 03/23/17 [History] Finasteride [Proscar] 5 mg PO DAILY 03/23/17 [History] Fluticasone/Salmeterol [Advair 250-50 Diskus] 2 puff IH BID 03/23/17 [History] Insulin DETEMIR [Levemir] 10 unit SQ DAILY 03/23/17 [History] Ipratropium/Albuterol Neb [Duoneb] 3 ml IH Q6HR 03/23/17 [History] Lactulose [Enulose] 30 ml PO BID 03/23/17 [History] Lisinopril 2.5 mg PO DAILY 03/23/17 [History] Magnesium Hydroxide [Milk of Magnesia] 30 ml PO DAILY PRN 03/23/17 [History] Magnesium Oxide [Magnesium] 500 mg PO DAILY 03/23/17 [History] Polyethylene Glycol 3350 [Purelax] 17 gm PO DAILY 03/23/17 [History] Sennosides [Senna] 8.6 mg PO BID 03/23/17 [History] Tamsulosin [Flomax] 0.8 mg PO DAILY 03/23/17 [History] Tiotropium [Spiriva] 1 cap IH DAILY 03/23/17 [History] metOLazone [Zaroxolyn] 2.5 mg PO MOWEFR 03/23/17 [History] Amoxicillin/Clavulanate [Augmentin] 875 mg PO BIDWM #6 tablet 03/28/17 [Rx] Lactobacillus [Culturelle] 2 each PO DAILY #30 cap.sprink 03/28/17 [Rx] Lidocaine Patch [Lidoderm 5% patch] 1 each TP DAILY #5 adh..patch 03/28/17 [Rx] Metoprolol Succinate 50 mg PO DAILY #0 03/28/17 [Rx] Potassium Chloride [K-Tab ER] 40 meq PO DAILY #0 03/28/17 [Rx] Torsemide 50 mg PO DAILY #0 03/28/17 [Rx] Allergies/Adverse Reactions: Allergies No Known Allergies Allergy (Verified 05/22/16 16:12) - Respiratory Orders Oxygen / L per min (2) Smoking Cessation: Smoking cessation has been advised. For more information, call the [facility] Tobacco Quit Line at 3-156-WVKG-NOW. - Lab Orders Lab Orders: Anjel 17 (BMP test in one week, follow up potassium level and renal function.) CERTIFICATION: I certify that the transfer of the above named patient to an Extended Care Facility is necessary for the continuing treatment of the diagnosis listed. The above information is true and accurate reflection of patient's current condition. Confidential - Redisclosure prohibited without a patient's written consent.
[2017-03-28 15:53] VITALS: BP 113/65
== END 2017-03-28 16:40 | DRG 871 ==
LOC: 2ANU 18:57 → EMEROO 18:57 → 2ANU 23:08
PROVIDERS: ADMIT Internal Medicine Sleep Medicine; ATTEND Internal Medicine